=== PATIENT | female | born 1935 | race Caucasian/White ===

== ENCOUNTER 2016-10-05 11:58 | Inpatient (IN) | payer OTHER ==
[2016-10-05] MEDS ORDERED: NITROGLYCERIN 0.4 MG TAB SL PRN (18:02)
[2016-10-05] MEDS ORDERED: ONDANSETRON HCL 4 MG TAB PO PRN (18:02)
[2016-10-05] MEDS ORDERED: POLYETHYLENE GLYCOL 17 GM/1 TBS PDS PO PRN (18:02)
[2016-10-05] MEDS ORDERED: OXYCODONE HYDROCHLORIDE 5 MG TAB PO PRN (18:02)
[2016-10-05] MEDS ORDERED: ALUMINUM/MAGNESIUM 30 ML SUS PO PRN (18:02)
[2016-10-05] MEDS ORDERED: Non-Formulary Medication MISC (Sennosides/Docusate Sodium [Senna-S 50 Mg-8.6 Mg] 1 TAB) PO PRN (18:02)
[2016-10-05] MEDS ORDERED: PIPERACILLIN/TAZOBACT 3.375 GM PDS IV SCH (18:15)
[2016-10-05] MEDS: SODIUM CHLORIDE 0.9% FLUSH 10 ML SOL IV PRN ×2 (18:30→20:13)
[2016-10-05] MEDS: SODIUM CHLORIDE 0.9% FLUSH 10 ML SOL IV SCH (19:14)
[2016-10-05] MEDS: AMLODIPINE 5 MG TAB PO SCH ×2 (19:30→19:31)
[2016-10-05] MEDS: Non-Formulary Medication MISC (Budesonide/Formoterol 160/4.5 2 PUFF) IH SCH (19:41)
[2016-10-05] MEDS ORDERED: DIPHENOXYLATE PO PRN (20:37)
[2016-10-05] MEDS ORDERED: ATROPINE PO PRN (20:37)
[2016-10-05] MEDS ORDERED: DIPHENOXYLATE PO SCH (21:00)
[2016-10-05] MEDS ORDERED: ATROPINE PO SCH (21:00)
[2016-10-05] MEDS: ACETAMINOPHEN 500 MG 500 MG TAB PO PRN (21:54)
[2016-10-05] MEDS: GABAPENTIN 300 MG CAP PO SCH (22:39)
[2016-10-05] MEDS: ACLIDINIUM BROMIDE 400 MCG INH SCH (22:40)
[2016-10-05] MEDS: LACTOBACILLUS ACIDOPHILUS/PE 1 TAB TAB PO SCH (22:41)
[2016-10-06] MEDS ORDERED: SODIUM CHLORIDE 0.9% 100 ML 100 ML IV ONE ×4 (01:07→20:00)
[2016-10-06] MEDS ORDERED: PIPERACILLIN/TAZOBACT 3.375 GM PDS IV ONE ×4 (01:07→19:59)
[2016-10-06] MEDS: SODIUM CHLORIDE 0.9% FLUSH 10 ML SOL IV SCH ×4 (01:19→20:10)
[2016-10-06] MEDS: PIPERACILLIN/TAZOBACT 3.375 GM 3.375 GM in SODIUM CHLORIDE 0.9% 100 ML 100 ML IV SCH ×4 (01:20→20:08)
[2016-10-06] MEDS: Non-Formulary Medication MISC (Budesonide/Formoterol 160/4.5 2 PUFF) IH SCH (06:14)
[2016-10-06] MEDS: ACLIDINIUM BROMIDE 400 MCG INH SCH ×2 (08:36→20:13)
[2016-10-06] MEDS: AMLODIPINE 5 MG TAB PO SCH (12:07)
[2016-10-06] MEDS: LACTOBACILLUS ACIDOPHILUS/PE 1 TAB TAB PO SCH ×2 (12:08→20:11)
[2016-10-06] MEDS: FLUCONAZOLE 100 MG TAB PO SCH (12:11)
[2016-10-06] MEDS: GABAPENTIN 100 MG CAP PO SCH (12:19)
[2016-10-06] MEDS ORDERED: SENNOSIDES A AND B 8.6 MG TAB PO PRN (15:42)
[2016-10-06] MEDS ORDERED: DOCUSATE SODIUM 100 MG SGL PO PRN (15:43)
[2016-10-06] MEDS ORDERED: BUDESONIDE/FORMOTEROL 160/4.5 AER INH SCH (15:45)
[2016-10-06] MEDS: ALBUTEROL HFA 60 PUFF/INHALER INH PRN (15:57)
[2016-10-06] MEDS: ACETAMINOPHEN 500 MG 500 MG TAB PO PRN (16:45)
[2016-10-06] MEDS: BUDESONIDE/FORMOTEROL 160/4.5 AER INH SCH (20:09)
[2016-10-06] MEDS: GABAPENTIN 300 MG CAP PO SCH (20:11)
[2016-10-07] MEDS: PIPERACILLIN/TAZOBACT 3.375 GM 3.375 GM in SODIUM CHLORIDE 0.9% 100 ML 100 ML IV SCH ×4 (01:19→18:59)
[2016-10-07] MEDS: SODIUM CHLORIDE 0.9% FLUSH 10 ML SOL IV SCH ×4 (01:19→18:59)
[2016-10-07] MEDS: BUDESONIDE/FORMOTEROL 160/4.5 AER INH SCH ×2 (06:28→18:12)
[2016-10-07 07:30] LABS: BASOPHILS % (AUTO) 1 % (0-3); EOSINOPHILS % (AUTO) 2 % (0-9); HEMATOCRIT 28 % (35-47); MEAN CORPUSCULAR HGB CONC 33.6 gm/dl (32.0-36.0); MONOCYTES % (AUTO) 5.7 % (0-12); NEUTROPHILS % (AUTO) 78.4 % (37-80)
[2016-10-07 07:32] LABS: ALBUMIN 1.8 gm/dl (3.4-5.0); CALCIUM 8.3 mg/dl (8.5-10.1); POTASSIUM 3.9 mMol/L (3.5-5.1)
[2016-10-07] MEDS: AMLODIPINE 5 MG TAB PO SCH (08:24)
[2016-10-07] MEDS: FLUCONAZOLE 100 MG TAB PO SCH (08:25)
[2016-10-07] MEDS: LACTOBACILLUS ACIDOPHILUS/PE 1 TAB TAB PO SCH ×2 (08:27→20:56)
[2016-10-07] MEDS: GABAPENTIN 100 MG CAP PO SCH (08:33)
[2016-10-07] MEDS: ACLIDINIUM BROMIDE 400 MCG INH SCH ×2 (09:15→20:56)
[2016-10-07] MEDS: PSYLLIUM 3.6 GM/1 TBS PDR PO SCH (09:28)
[2016-10-07] MEDS: ACETAMINOPHEN 500 MG 500 MG TAB PO PRN (19:30)
[2016-10-07] MEDS: GABAPENTIN 300 MG CAP PO SCH (20:56)
[2016-10-08] MEDS: SODIUM CHLORIDE 0.9% FLUSH 10 ML SOL IV SCH ×4 (01:37→18:21)
[2016-10-08] MEDS: PIPERACILLIN/TAZOBACT 3.375 GM 3.375 GM in SODIUM CHLORIDE 0.9% 100 ML 100 ML IV SCH ×4 (01:38→18:21)
[2016-10-08] MEDS: BUDESONIDE/FORMOTEROL 160/4.5 AER INH SCH ×2 (06:38→18:32)
[2016-10-08] MEDS: LACTOBACILLUS ACIDOPHILUS/PE 1 TAB TAB PO SCH ×2 (08:09→21:35)
[2016-10-08] MEDS: FLUCONAZOLE 100 MG TAB PO SCH (08:11)
[2016-10-08] MEDS: GABAPENTIN 100 MG CAP PO SCH (08:12)
[2016-10-08] MEDS: ACLIDINIUM BROMIDE 400 MCG INH SCH ×2 (08:13→21:44)
[2016-10-08] MEDS: AMLODIPINE 5 MG TAB PO SCH (08:14)
[2016-10-08] MEDS: PSYLLIUM 3.6 GM/1 TBS PDR PO SCH (11:58)
[2016-10-08] MEDS: SODIUM CHLORIDE 0.9% FLUSH 10 ML SOL IV PRN (14:05)
[2016-10-08] MEDS: GABAPENTIN 300 MG CAP PO SCH (21:39)
[2016-10-09] MEDS: PIPERACILLIN/TAZOBACT 3.375 GM 3.375 GM in SODIUM CHLORIDE 0.9% 100 ML 100 ML IV SCH ×4 (00:46→18:28)
[2016-10-09] MEDS: SODIUM CHLORIDE 0.9% FLUSH 10 ML SOL IV SCH ×4 (00:46→18:30)
[2016-10-09] MEDS: BUDESONIDE/FORMOTEROL 160/4.5 AER INH SCH ×2 (06:03→18:28)
[2016-10-09] MEDS: SODIUM CHLORIDE 0.9% FLUSH 10 ML SOL IV PRN (06:45)
[2016-10-09] MEDS: AMLODIPINE 5 MG TAB PO SCH (09:01)
[2016-10-09] MEDS: LACTOBACILLUS ACIDOPHILUS/PE 1 TAB TAB PO SCH ×2 (09:02→20:46)
[2016-10-09] MEDS: FLUCONAZOLE 100 MG TAB PO SCH (09:02)
[2016-10-09] MEDS: ACLIDINIUM BROMIDE 400 MCG INH SCH ×2 (09:02→20:23)
[2016-10-09] MEDS: GABAPENTIN 100 MG CAP PO SCH (09:03)
[2016-10-09] MEDS: PSYLLIUM 3.6 GM/1 TBS PDR PO SCH (09:04)
[2016-10-09] MEDS: GABAPENTIN 300 MG CAP PO SCH (20:24)
[2016-10-10] MEDS: PIPERACILLIN/TAZOBACT 3.375 GM 3.375 GM in SODIUM CHLORIDE 0.9% 100 ML 100 ML IV SCH ×4 (01:45→19:05)
[2016-10-10] MEDS: SODIUM CHLORIDE 0.9% FLUSH 10 ML SOL IV SCH ×6 (01:45→19:46)
[2016-10-10] MEDS: BUDESONIDE/FORMOTEROL 160/4.5 AER INH SCH ×2 (06:10→18:37)
[2016-10-10] MEDS: LACTOBACILLUS ACIDOPHILUS/PE 1 TAB TAB PO SCH ×2 (09:59→20:59)
[2016-10-10] MEDS: FLUCONAZOLE 100 MG TAB PO SCH (09:59)
[2016-10-10] MEDS: ACLIDINIUM BROMIDE 400 MCG INH SCH ×2 (09:59→21:02)
[2016-10-10] MEDS: PSYLLIUM 3.6 GM/1 TBS PDR PO SCH (09:59)
[2016-10-10] MEDS: AMLODIPINE 5 MG TAB PO SCH (10:00)
[2016-10-10] MEDS: GABAPENTIN 100 MG CAP PO SCH (10:00)
[2016-10-10] MEDS: SODIUM CHLORIDE 0.9% FLUSH 10 ML SOL IV PRN (13:38)
[2016-10-10] MEDS: ACETAMINOPHEN 500 MG 500 MG TAB PO PRN (14:32)
[2016-10-10] MEDS: GABAPENTIN 300 MG CAP PO SCH (21:00)
[2016-10-11] MEDS: SODIUM CHLORIDE 0.9% FLUSH 10 ML SOL IV SCH ×5 (01:04→19:44)
[2016-10-11] MEDS: PIPERACILLIN/TAZOBACT 3.375 GM 3.375 GM in SODIUM CHLORIDE 0.9% 100 ML 100 ML IV SCH ×4 (01:04→19:44)
[2016-10-11] MEDS: BUDESONIDE/FORMOTEROL 160/4.5 AER INH SCH ×2 (06:00→19:25)
[2016-10-11] MEDS: LACTOBACILLUS ACIDOPHILUS/PE 1 TAB TAB PO SCH ×2 (09:11→20:13)
[2016-10-11] MEDS: ACLIDINIUM BROMIDE 400 MCG INH SCH ×2 (09:12→20:17)
[2016-10-11] MEDS: GABAPENTIN 100 MG CAP PO SCH (09:12)
[2016-10-11] MEDS: FLUCONAZOLE 100 MG TAB PO SCH (09:12)
[2016-10-11] MEDS: AMLODIPINE 5 MG TAB PO SCH (09:13)
[2016-10-11] MEDS: PSYLLIUM 3.6 GM/1 TBS PDR PO SCH (09:15)
[2016-10-11] MEDS: GABAPENTIN 300 MG CAP PO SCH (20:14)
[2016-10-12] MEDS: PIPERACILLIN/TAZOBACT 3.375 GM 3.375 GM in SODIUM CHLORIDE 0.9% 100 ML 100 ML IV SCH ×4 (00:43→18:35)
[2016-10-12] MEDS: SODIUM CHLORIDE 0.9% FLUSH 10 ML SOL IV SCH ×4 (00:44→18:35)
[2016-10-12] MEDS: BUDESONIDE/FORMOTEROL 160/4.5 AER INH SCH ×2 (06:36→18:35)
[2016-10-12] MEDS: AMLODIPINE 5 MG TAB PO SCH (09:07)
[2016-10-12] MEDS: FLUCONAZOLE 100 MG TAB PO SCH (09:08)
[2016-10-12] MEDS: LACTOBACILLUS ACIDOPHILUS/PE 1 TAB TAB PO SCH ×2 (09:08→21:04)
[2016-10-12] MEDS: PSYLLIUM 3.6 GM/1 TBS PDR PO SCH (09:08)
[2016-10-12] MEDS: GABAPENTIN 100 MG CAP PO SCH (09:09)
[2016-10-12] MEDS: ACLIDINIUM BROMIDE 400 MCG INH SCH ×2 (09:12→21:04)
[2016-10-12 09:18] LABS: BASOPHILS % (AUTO) 2 % (0-3); EOSINOPHILS % (AUTO) 3 % (0-9); HEMATOCRIT 27 % (35-47); MEAN CORPUSCULAR HGB CONC 33.6 gm/dl (32.0-36.0); MONOCYTES % (AUTO) 8.3 % (0-12); NEUTROPHILS % (AUTO) 71.7 % (37-80)
[2016-10-12] MEDS ORDERED: PIPERACILLIN/TAZOBACT 3.375 GM PDS IV ONE (12:54)
[2016-10-12] MEDS ORDERED: SODIUM CHLORIDE 0.9% 100 ML 100 ML IV ONE (12:54)
[2016-10-12] MEDS: SODIUM CHLORIDE 0.9% FLUSH 10 ML SOL IV PRN (13:55)
[2016-10-12] MEDS: GABAPENTIN 300 MG CAP PO SCH (21:04)
[2016-10-13] MEDS: PIPERACILLIN/TAZOBACT 3.375 GM 3.375 GM in SODIUM CHLORIDE 0.9% 100 ML 100 ML IV SCH ×4 (00:42→19:16)
[2016-10-13] MEDS: SODIUM CHLORIDE 0.9% FLUSH 10 ML SOL IV SCH ×4 (00:42→19:16)
[2016-10-13] MEDS: BUDESONIDE/FORMOTEROL 160/4.5 AER INH SCH ×2 (06:35→17:59)
[2016-10-13] MEDS: SODIUM CHLORIDE 0.9% FLUSH 10 ML SOL IV PRN ×2 (07:13→13:10)
[2016-10-13] MEDS: ACLIDINIUM BROMIDE 400 MCG INH SCH ×2 (08:46→20:01)
[2016-10-13] MEDS: FLUCONAZOLE 100 MG TAB PO SCH (08:46)
[2016-10-13] MEDS: LACTOBACILLUS ACIDOPHILUS/PE 1 TAB TAB PO SCH ×2 (08:46→20:01)
[2016-10-13] MEDS: PSYLLIUM 3.6 GM/1 TBS PDR PO SCH (08:47)
[2016-10-13] MEDS: GABAPENTIN 100 MG CAP PO SCH (08:47)
[2016-10-13] MEDS: AMLODIPINE 5 MG TAB PO SCH (08:48)
[2016-10-13] MEDS: ALBUTEROL HFA 60 PUFF/INHALER INH PRN ×2 (09:40→15:39)
[2016-10-13] MEDS: GABAPENTIN 300 MG CAP PO SCH (20:01)
[2016-10-14] MEDS: PIPERACILLIN/TAZOBACT 3.375 GM 3.375 GM in SODIUM CHLORIDE 0.9% 100 ML 100 ML IV SCH ×4 (00:32→19:40)
[2016-10-14] MEDS: SODIUM CHLORIDE 0.9% FLUSH 10 ML SOL IV SCH ×4 (00:32→19:40)
[2016-10-14] MEDS: SODIUM CHLORIDE 0.9% FLUSH 10 ML SOL IV PRN ×2 (01:09→07:35)
[2016-10-14] MEDS: BUDESONIDE/FORMOTEROL 160/4.5 AER INH SCH ×2 (06:57→18:52)
[2016-10-14 07:23] LABS: BASOPHILS % (AUTO) 2 % (0-3); EOSINOPHILS % (AUTO) 4 % (0-9); HEMATOCRIT 27 % (35-47); MEAN CORPUSCULAR HGB CONC 34.4 gm/dl (32.0-36.0); MONOCYTES % (AUTO) 9.4 % (0-12); NEUTROPHILS % (AUTO) 71.1 % (37-80)
[2016-10-14 07:24] LABS: ALBUMIN 2.1 gm/dl (3.4-5.0); CALCIUM 8.6 mg/dl (8.5-10.1); POTASSIUM 3.7 mMol/L (3.5-5.1)
[2016-10-14] MEDS: FLUCONAZOLE 100 MG TAB PO SCH (08:50)
[2016-10-14] MEDS: GABAPENTIN 100 MG CAP PO SCH (08:51)
[2016-10-14] MEDS: AMLODIPINE 5 MG TAB PO SCH (08:51)
[2016-10-14] MEDS: PSYLLIUM 3.6 GM/1 TBS PDR PO SCH (08:51)
[2016-10-14] MEDS: LACTOBACILLUS ACIDOPHILUS/PE 1 TAB TAB PO SCH ×2 (08:52→20:09)
[2016-10-14] MEDS: ACLIDINIUM BROMIDE 400 MCG INH SCH ×2 (08:53→20:09)
[2016-10-14] MEDS: GABAPENTIN 300 MG CAP PO SCH (20:09)
[2016-10-15] MEDS: PIPERACILLIN/TAZOBACT 3.375 GM 3.375 GM in SODIUM CHLORIDE 0.9% 100 ML 100 ML IV SCH ×4 (01:15→18:10)
[2016-10-15] MEDS: SODIUM CHLORIDE 0.9% FLUSH 10 ML SOL IV SCH ×5 (01:16→18:48)
[2016-10-15] MEDS: ACETAMINOPHEN 500 MG 500 MG TAB PO PRN (01:28)
[2016-10-15] MEDS: BUDESONIDE/FORMOTEROL 160/4.5 AER INH SCH ×2 (06:38→18:10)
[2016-10-15] MEDS: FLUCONAZOLE 100 MG TAB PO SCH (09:40)
[2016-10-15] MEDS: LACTOBACILLUS ACIDOPHILUS/PE 1 TAB TAB PO SCH ×3 (09:40→22:47)
[2016-10-15] MEDS: ACLIDINIUM BROMIDE 400 MCG INH SCH ×2 (09:40→20:14)
[2016-10-15] MEDS: AMLODIPINE 5 MG TAB PO SCH (09:41)
[2016-10-15] MEDS: PSYLLIUM 3.6 GM/1 TBS PDR PO SCH (09:41)
[2016-10-15] MEDS: GABAPENTIN 100 MG CAP PO SCH (09:41)
[2016-10-15] MEDS: ALBUTEROL HFA 60 PUFF/INHALER INH PRN ×2 (11:13→20:15)
[2016-10-15] MEDS: GABAPENTIN 300 MG CAP PO SCH (20:14)
[2016-10-16] MEDS: SODIUM CHLORIDE 0.9% FLUSH 10 ML SOL IV SCH ×4 (00:37→19:44)
[2016-10-16] MEDS: PIPERACILLIN/TAZOBACT 3.375 GM 3.375 GM in SODIUM CHLORIDE 0.9% 100 ML 100 ML IV SCH ×4 (00:38→19:45)
[2016-10-16] MEDS: BUDESONIDE/FORMOTEROL 160/4.5 AER INH SCH ×2 (06:25→17:13)
[2016-10-16] MEDS: SODIUM CHLORIDE 0.9% FLUSH 10 ML SOL IV PRN (06:29)
[2016-10-16] MEDS: FLUCONAZOLE 100 MG TAB PO SCH (08:41)
[2016-10-16] MEDS: LACTOBACILLUS ACIDOPHILUS/PE 1 TAB TAB PO SCH ×2 (08:42→20:41)
[2016-10-16] MEDS: ACLIDINIUM BROMIDE 400 MCG INH SCH ×2 (08:42→20:43)
[2016-10-16] MEDS: AMLODIPINE 5 MG TAB PO SCH (08:43)
[2016-10-16] MEDS: PSYLLIUM 3.6 GM/1 TBS PDR PO SCH ×2 (08:43→08:47)
[2016-10-16] MEDS: GABAPENTIN 100 MG CAP PO SCH (08:44)
[2016-10-16] MEDS: GABAPENTIN 300 MG CAP PO SCH (20:42)
[2016-10-16] MEDS: ALBUTEROL HFA 60 PUFF/INHALER INH PRN (20:47)
[2016-10-17] MEDS: PIPERACILLIN/TAZOBACT 3.375 GM 3.375 GM in SODIUM CHLORIDE 0.9% 100 ML 100 ML IV SCH ×4 (01:14→19:53)
[2016-10-17] MEDS: SODIUM CHLORIDE 0.9% FLUSH 10 ML SOL IV SCH ×4 (01:14→21:49)
[2016-10-17] MEDS: BUDESONIDE/FORMOTEROL 160/4.5 AER INH SCH ×2 (05:52→17:31)
[2016-10-17] MEDS: SODIUM CHLORIDE 0.9% FLUSH 10 ML SOL IV PRN (07:54)
[2016-10-17] MEDS: LACTOBACILLUS ACIDOPHILUS/PE 1 TAB TAB PO SCH ×2 (08:49→21:50)
[2016-10-17] MEDS: FLUCONAZOLE 100 MG TAB PO SCH (08:50)
[2016-10-17] MEDS: ACLIDINIUM BROMIDE 400 MCG INH SCH ×2 (08:50→21:50)
[2016-10-17] MEDS: PSYLLIUM 3.6 GM/1 TBS PDR PO SCH (08:50)
[2016-10-17] MEDS: GABAPENTIN 100 MG CAP PO SCH (08:51)
[2016-10-17] MEDS: AMLODIPINE 5 MG TAB PO SCH (08:51)
[2016-10-17] MEDS: ALBUTEROL HFA 60 PUFF/INHALER INH PRN (21:50)
[2016-10-17] MEDS: GABAPENTIN 300 MG CAP PO SCH (21:51)
[2016-10-18] MEDS: SODIUM CHLORIDE 0.9% FLUSH 10 ML SOL IV SCH ×5 (01:04→21:29)
[2016-10-18] MEDS: PIPERACILLIN/TAZOBACT 3.375 GM 3.375 GM in SODIUM CHLORIDE 0.9% 100 ML 100 ML IV SCH ×4 (01:04→18:40)
[2016-10-18] MEDS: BUDESONIDE/FORMOTEROL 160/4.5 AER INH SCH ×2 (07:16→18:41)
[2016-10-18] MEDS: LACTOBACILLUS ACIDOPHILUS/PE 1 TAB TAB PO SCH ×2 (08:22→21:30)
[2016-10-18] MEDS: AMLODIPINE 5 MG TAB PO SCH (08:22)
[2016-10-18] MEDS: FLUCONAZOLE 100 MG TAB PO SCH (08:23)
[2016-10-18] MEDS: GABAPENTIN 100 MG CAP PO SCH (08:23)
[2016-10-18] MEDS: PSYLLIUM 3.6 GM/1 TBS PDR PO SCH (08:24)
[2016-10-18] MEDS: ACLIDINIUM BROMIDE 400 MCG INH SCH ×2 (08:25→21:30)
[2016-10-18] MEDS: FUROSEMIDE 20 MG TAB PO SCH (10:05)
[2016-10-18] MEDS: SODIUM CHLORIDE 0.9% FLUSH 10 ML SOL IV PRN (13:19)
[2016-10-18] MEDS: GABAPENTIN 300 MG CAP PO SCH (21:30)
[2016-10-19] MEDS: SODIUM CHLORIDE 0.9% FLUSH 10 ML SOL IV SCH ×5 (00:55→19:03)
[2016-10-19] MEDS: PIPERACILLIN/TAZOBACT 3.375 GM 3.375 GM in SODIUM CHLORIDE 0.9% 100 ML 100 ML IV SCH ×4 (00:55→18:16)
[2016-10-19] MEDS: BUDESONIDE/FORMOTEROL 160/4.5 AER INH SCH ×2 (05:56→17:51)
[2016-10-19] MEDS: FLUCONAZOLE 100 MG TAB PO SCH (08:32)
[2016-10-19] MEDS: LACTOBACILLUS ACIDOPHILUS/PE 1 TAB TAB PO SCH ×2 (08:33→20:27)
[2016-10-19] MEDS: PSYLLIUM 3.6 GM/1 TBS PDR PO SCH (08:34)
[2016-10-19] MEDS: ACLIDINIUM BROMIDE 400 MCG INH SCH ×2 (08:34→20:27)
[2016-10-19] MEDS: FUROSEMIDE 20 MG TAB PO SCH (08:34)
[2016-10-19] MEDS: GABAPENTIN 100 MG CAP PO SCH (08:35)
[2016-10-19] MEDS: AMLODIPINE 5 MG TAB PO SCH (08:35)
[2016-10-19] MEDS: GABAPENTIN 300 MG CAP PO SCH (20:28)
[2016-10-20] MEDS: SODIUM CHLORIDE 0.9% FLUSH 10 ML SOL IV SCH ×4 (00:42→18:55)
[2016-10-20] MEDS: PIPERACILLIN/TAZOBACT 3.375 GM 3.375 GM in SODIUM CHLORIDE 0.9% 100 ML 100 ML IV SCH ×4 (00:42→18:20)
[2016-10-20] MEDS: BUDESONIDE/FORMOTEROL 160/4.5 AER INH SCH ×2 (06:20→17:35)
[2016-10-20] MEDS: FUROSEMIDE 20 MG TAB PO SCH (08:31)
[2016-10-20] MEDS: AMLODIPINE 5 MG TAB PO SCH (08:32)
[2016-10-20] MEDS: FLUCONAZOLE 100 MG TAB PO SCH (08:32)
[2016-10-20] MEDS: PSYLLIUM 3.6 GM/1 TBS PDR PO SCH (08:32)
[2016-10-20] MEDS: GABAPENTIN 100 MG CAP PO SCH (08:32)
[2016-10-20] MEDS: LACTOBACILLUS ACIDOPHILUS/PE 1 TAB TAB PO SCH ×2 (08:33→20:48)
[2016-10-20] MEDS: ACLIDINIUM BROMIDE 400 MCG INH SCH ×2 (08:33→20:48)
[2016-10-20] MEDS: SODIUM CHLORIDE 0.9% FLUSH 10 ML SOL IV PRN (13:41)
[2016-10-20] MEDS: GABAPENTIN 300 MG CAP PO SCH (20:49)
[2016-10-21] MEDS: SODIUM CHLORIDE 0.9% FLUSH 10 ML SOL IV SCH ×5 (01:02→18:53)
[2016-10-21] MEDS: PIPERACILLIN/TAZOBACT 3.375 GM 3.375 GM in SODIUM CHLORIDE 0.9% 100 ML 100 ML IV SCH ×4 (01:03→18:52)
[2016-10-21] MEDS: BUDESONIDE/FORMOTEROL 160/4.5 AER INH SCH ×2 (06:20→18:21)
[2016-10-21 07:20] LABS: BASOPHILS % (AUTO) 2 % (0-3); EOSINOPHILS % (AUTO) 6 % (0-9); HEMATOCRIT 24 % (35-47); MEAN CORPUSCULAR HGB CONC 34.9 gm/dl (32.0-36.0); MONOCYTES % (AUTO) 8.2 % (0-12); NEUTROPHILS % (AUTO) 63.8 % (37-80)
[2016-10-21 07:23] LABS: ALBUMIN 2.2 gm/dl (3.4-5.0); CALCIUM 8.2 mg/dl (8.5-10.1); POTASSIUM 3.3 mMol/L (3.5-5.1)
[2016-10-21] MEDS: FLUCONAZOLE 100 MG TAB PO SCH (09:44)
[2016-10-21] MEDS: ACLIDINIUM BROMIDE 400 MCG INH SCH ×2 (09:44→21:46)
[2016-10-21] MEDS: AMLODIPINE 5 MG TAB PO SCH (09:44)
[2016-10-21] MEDS: LACTOBACILLUS ACIDOPHILUS/PE 1 TAB TAB PO SCH ×2 (09:44→21:45)
[2016-10-21] MEDS: FUROSEMIDE 20 MG TAB PO SCH (09:45)
[2016-10-21] MEDS: PSYLLIUM 3.6 GM/1 TBS PDR PO SCH (09:45)
[2016-10-21] MEDS: GABAPENTIN 100 MG CAP PO SCH (09:45)
[2016-10-21] MEDS: SODIUM CHLORIDE 0.9% FLUSH 10 ML SOL IV PRN (13:29)
[2016-10-21] MEDS ORDERED: POTASSIUM CHLORIDE 10 MEQ TER PO SCH (20:30)
[2016-10-21] MEDS ORDERED: POTASSIUM CHLORIDE 10 MEQ TER ONE (21:41)
[2016-10-21] MEDS: GABAPENTIN 300 MG CAP PO SCH (21:47)
[2016-10-22] MEDS ORDERED: PIPERACILLIN/TAZOBACT 3.375 GM PDS IV ONE ×3 (00:57→14:53)
[2016-10-22] MEDS ORDERED: SODIUM CHLORIDE 0.9% 100 ML 100 ML IV ONE ×2 (00:58→06:10)
[2016-10-22] MEDS: PIPERACILLIN/TAZOBACT 3.375 GM 3.375 GM in SODIUM CHLORIDE 0.9% 100 ML 100 ML IV SCH ×4 (01:04→20:59)
[2016-10-22] MEDS: SODIUM CHLORIDE 0.9% FLUSH 10 ML SOL IV SCH ×4 (01:04→20:59)
[2016-10-22] MEDS: BUDESONIDE/FORMOTEROL 160/4.5 AER INH SCH ×2 (06:58→19:00)
[2016-10-22 07:17] LABS: CALCIUM 8.3 mg/dl (8.5-10.1); POTASSIUM 3.4 mMol/L (3.5-5.1)
[2016-10-22] MEDS: SODIUM CHLORIDE 0.9% FLUSH 10 ML SOL IV PRN ×2 (07:36→21:43)
[2016-10-22] MEDS: FLUCONAZOLE 100 MG TAB PO SCH (09:41)
[2016-10-22] MEDS: ACLIDINIUM BROMIDE 400 MCG INH SCH ×2 (09:42→20:43)
[2016-10-22] MEDS: LACTOBACILLUS ACIDOPHILUS/PE 1 TAB TAB PO SCH ×2 (09:42→20:42)
[2016-10-22] MEDS: AMLODIPINE 5 MG TAB PO SCH (09:43)
[2016-10-22] MEDS: GABAPENTIN 100 MG CAP PO SCH (09:43)
[2016-10-22] MEDS: FUROSEMIDE 20 MG TAB PO SCH (09:43)
[2016-10-22] MEDS: PSYLLIUM 3.6 GM/1 TBS PDR PO SCH (09:44)
[2016-10-22] MEDS ORDERED: POTASSIUM CHLORIDE 10 MEQ CAPSULE PO ONE (17:36)
[2016-10-22] MEDS ORDERED: POTASSIUM CHLORIDE 10 MEQ TER ONE (18:50)
[2016-10-22] MEDS: GABAPENTIN 300 MG CAP PO SCH (20:43)
[2016-10-23] MEDS: PIPERACILLIN/TAZOBACT 3.375 GM 3.375 GM in SODIUM CHLORIDE 0.9% 100 ML 100 ML IV SCH ×4 (02:43→20:26)
[2016-10-23] MEDS: SODIUM CHLORIDE 0.9% FLUSH 10 ML SOL IV SCH ×4 (02:44→21:04)
[2016-10-23] MEDS: SODIUM CHLORIDE 0.9% FLUSH 10 ML SOL IV PRN (03:15)
[2016-10-23] MEDS: BUDESONIDE/FORMOTEROL 160/4.5 AER INH SCH ×2 (05:34→18:57)
[2016-10-23] MEDS: LACTOBACILLUS ACIDOPHILUS/PE 1 TAB TAB PO SCH ×2 (09:56→20:24)
[2016-10-23] MEDS: FLUCONAZOLE 100 MG TAB PO SCH (09:56)
[2016-10-23] MEDS: ACLIDINIUM BROMIDE 400 MCG INH SCH ×2 (09:57→20:24)
[2016-10-23] MEDS: FUROSEMIDE 20 MG TAB PO SCH (09:57)
[2016-10-23] MEDS: POTASSIUM CHLORIDE 10 MEQ TER PO SCH (09:57)
[2016-10-23] MEDS: PSYLLIUM 3.6 GM/1 TBS PDR PO SCH ×2 (09:57→10:04)
[2016-10-23] MEDS: AMLODIPINE 5 MG TAB PO SCH (09:58)
[2016-10-23] MEDS: GABAPENTIN 100 MG CAP PO SCH (09:58)
[2016-10-23] MEDS: GABAPENTIN 300 MG CAP PO SCH (20:26)
[2016-10-24] MEDS: PIPERACILLIN/TAZOBACT 3.375 GM 3.375 GM in SODIUM CHLORIDE 0.9% 100 ML 100 ML IV SCH ×4 (02:30→21:37)
[2016-10-24] MEDS: SODIUM CHLORIDE 0.9% FLUSH 10 ML SOL IV SCH ×4 (02:30→21:37)
[2016-10-24] MEDS: SODIUM CHLORIDE 0.9% FLUSH 10 ML SOL IV PRN (03:07)
[2016-10-24] MEDS: BUDESONIDE/FORMOTEROL 160/4.5 AER INH SCH ×2 (06:12→18:35)
[2016-10-24] MEDS: FUROSEMIDE 20 MG TAB PO SCH (10:17)
[2016-10-24] MEDS: GABAPENTIN 100 MG CAP PO SCH (10:17)
[2016-10-24] MEDS: LACTOBACILLUS ACIDOPHILUS/PE 1 TAB TAB PO SCH ×2 (10:18→20:57)
[2016-10-24] MEDS: AMLODIPINE 5 MG TAB PO SCH (10:18)
[2016-10-24] MEDS: POTASSIUM CHLORIDE 10 MEQ TER PO SCH (10:19)
[2016-10-24] MEDS: PSYLLIUM 3.6 GM/1 TBS PDR PO SCH (10:19)
[2016-10-24] MEDS: FLUCONAZOLE 100 MG TAB PO SCH (10:20)
[2016-10-24] MEDS: ACLIDINIUM BROMIDE 400 MCG INH SCH ×2 (10:20→21:07)
[2016-10-24] MEDS: GABAPENTIN 300 MG CAP PO SCH (20:59)
[2016-10-25] MEDS: SODIUM CHLORIDE 0.9% FLUSH 10 ML SOL IV SCH ×4 (03:26→20:28)
[2016-10-25] MEDS: PIPERACILLIN/TAZOBACT 3.375 GM 3.375 GM in SODIUM CHLORIDE 0.9% 100 ML 100 ML IV SCH ×4 (03:26→20:28)
[2016-10-25] MEDS: BUDESONIDE/FORMOTEROL 160/4.5 AER INH SCH ×2 (05:52→18:24)
[2016-10-25 07:17] LABS: CALCIUM 8.5 mg/dl (8.5-10.1); POTASSIUM 3.5 mMol/L (3.5-5.1)
[2016-10-25] MEDS: ACLIDINIUM BROMIDE 400 MCG INH SCH ×2 (09:30→20:24)
[2016-10-25] MEDS: FLUCONAZOLE 100 MG TAB PO SCH (09:30)
[2016-10-25] MEDS: GABAPENTIN 100 MG CAP PO SCH (09:31)
[2016-10-25] MEDS: FUROSEMIDE 20 MG TAB PO SCH (09:32)
[2016-10-25] MEDS: LACTOBACILLUS ACIDOPHILUS/PE 1 TAB TAB PO SCH ×2 (09:32→20:26)
[2016-10-25] MEDS: PSYLLIUM 3.6 GM/1 TBS PDR PO SCH (09:32)
[2016-10-25] MEDS: AMLODIPINE 5 MG TAB PO SCH (09:53)
[2016-10-25] MEDS: LISINOPRIL 5 MG TAB PO SCH (09:53)
[2016-10-25] MEDS: DOCUSATE SODIUM 100 MG SGL PO SCH ×2 (09:53→20:25)
[2016-10-25] MEDS: POTASSIUM CHLORIDE 10 MEQ TER PO SCH (09:53)
[2016-10-25] MEDS: FERROUS SULFATE 325 MG TAB PO SCH ×2 (09:53→20:26)
[2016-10-25] MEDS: GABAPENTIN 300 MG CAP PO SCH (20:27)
[2016-10-25] MEDS: SODIUM CHLORIDE 0.9% FLUSH 10 ML SOL IV PRN (21:07)
[2016-10-26] MEDS: PIPERACILLIN/TAZOBACT 3.375 GM 3.375 GM in SODIUM CHLORIDE 0.9% 100 ML 100 ML IV SCH ×4 (03:03→20:59)
[2016-10-26] MEDS: SODIUM CHLORIDE 0.9% FLUSH 10 ML SOL IV SCH ×4 (03:04→20:59)
[2016-10-26] MEDS: BUDESONIDE/FORMOTEROL 160/4.5 AER INH SCH ×2 (06:23→20:04)
[2016-10-26] MEDS: ACLIDINIUM BROMIDE 400 MCG INH SCH ×2 (09:04→20:05)
[2016-10-26] MEDS: DOCUSATE SODIUM 100 MG SGL PO SCH ×2 (09:05→20:05)
[2016-10-26] MEDS: AMLODIPINE 5 MG TAB PO SCH (09:05)
[2016-10-26] MEDS: LISINOPRIL 5 MG TAB PO SCH (09:06)
[2016-10-26] MEDS: LACTOBACILLUS ACIDOPHILUS/PE 1 TAB TAB PO SCH ×2 (09:06→20:04)
[2016-10-26] MEDS: FERROUS SULFATE 325 MG TAB PO SCH ×2 (09:06→20:05)
[2016-10-26] MEDS: FLUCONAZOLE 100 MG TAB PO SCH (09:06)
[2016-10-26] MEDS: PSYLLIUM 3.6 GM/1 TBS PDR PO SCH (09:07)
[2016-10-26] MEDS: GABAPENTIN 100 MG CAP PO SCH (09:07)
[2016-10-26] MEDS: FUROSEMIDE 20 MG TAB PO SCH (09:08)
[2016-10-26] MEDS: POTASSIUM CHLORIDE 10 MEQ TER PO SCH (09:08)
[2016-10-26] MEDS: GABAPENTIN 300 MG CAP PO SCH (20:07)
[2016-10-26] MEDS: ALBUTEROL HFA 60 PUFF/INHALER INH PRN (20:14)
[2016-10-26] MEDS: SODIUM CHLORIDE 0.9% FLUSH 10 ML SOL IV PRN (21:42)
[2016-10-27] MEDS: PIPERACILLIN/TAZOBACT 3.375 GM 3.375 GM in SODIUM CHLORIDE 0.9% 100 ML 100 ML IV SCH ×4 (02:38→20:34)
[2016-10-27] MEDS: SODIUM CHLORIDE 0.9% FLUSH 10 ML SOL IV SCH ×4 (02:39→20:34)
[2016-10-27] MEDS: ACLIDINIUM BROMIDE 400 MCG INH SCH ×2 (08:38→20:03)
[2016-10-27] MEDS: AMLODIPINE 5 MG TAB PO SCH (08:40)
[2016-10-27] MEDS: GABAPENTIN 100 MG CAP PO SCH (08:40)
[2016-10-27] MEDS: POTASSIUM CHLORIDE 10 MEQ TER PO SCH (08:40)
[2016-10-27] MEDS: FERROUS SULFATE 325 MG TAB PO SCH ×2 (08:40→20:04)
[2016-10-27] MEDS: LACTOBACILLUS ACIDOPHILUS/PE 1 TAB TAB PO SCH ×2 (08:41→20:01)
[2016-10-27] MEDS: FLUCONAZOLE 100 MG TAB PO SCH (08:41)
[2016-10-27] MEDS: LISINOPRIL 5 MG TAB PO SCH (08:41)
[2016-10-27] MEDS: FUROSEMIDE 20 MG TAB PO SCH (08:41)
[2016-10-27] MEDS: DOCUSATE SODIUM 100 MG SGL PO SCH ×2 (08:42→20:04)
[2016-10-27] MEDS: PSYLLIUM 3.6 GM/1 TBS PDR PO SCH (08:42)
[2016-10-27] MEDS: BUDESONIDE/FORMOTEROL 160/4.5 AER INH SCH ×2 (08:44→20:02)
[2016-10-27] MEDS: ALBUTEROL HFA 60 PUFF/INHALER INH PRN ×2 (16:08→20:33)
[2016-10-27] MEDS: GABAPENTIN 300 MG CAP PO SCH (20:04)
[2016-10-28] MEDS: SODIUM CHLORIDE 0.9% FLUSH 10 ML SOL IV SCH ×4 (03:05→20:48)
[2016-10-28] MEDS: PIPERACILLIN/TAZOBACT 3.375 GM 3.375 GM in SODIUM CHLORIDE 0.9% 100 ML 100 ML IV SCH ×4 (03:05→20:52)
[2016-10-28] MEDS: ALBUTEROL NEB SOL 2.5MG/3ML 1 VIAL SOL NEB PRN ×2 (03:09→13:25)
[2016-10-28 07:28] LABS: BASOPHILS % (AUTO) 1 % (0-3); EOSINOPHILS % (AUTO) 16 % (0-9); HEMATOCRIT 25 % (35-47); MEAN CORPUSCULAR HGB CONC 32.4 gm/dl (32.0-36.0); MONOCYTES % (AUTO) 9.2 % (0-12)
[2016-10-28 07:43] LABS: ALBUMIN 2.4 gm/dl (3.4-5.0); CALCIUM 8.9 mg/dl (8.5-10.1); LDL CHOLESTEROL,CALCULATED 136.8 mg/dl (50-130); POTASSIUM 3.7 mMol/L (3.5-5.1)
[2016-10-28] MEDS: FERROUS SULFATE 325 MG TAB PO SCH ×2 (08:21→20:53)
[2016-10-28] MEDS: LACTOBACILLUS ACIDOPHILUS/PE 1 TAB TAB PO SCH ×2 (08:21→20:49)
[2016-10-28] MEDS: GABAPENTIN 100 MG CAP PO SCH (08:22)
[2016-10-28] MEDS: POTASSIUM CHLORIDE 10 MEQ TER PO SCH (08:22)
[2016-10-28] MEDS: FLUCONAZOLE 100 MG TAB PO SCH (08:23)
[2016-10-28] MEDS: ACLIDINIUM BROMIDE 400 MCG INH SCH ×2 (08:23→20:51)
[2016-10-28] MEDS: AMLODIPINE 5 MG TAB PO SCH (08:24)
[2016-10-28] MEDS: FUROSEMIDE 20 MG TAB PO SCH (08:26)
[2016-10-28] MEDS: LISINOPRIL 5 MG TAB PO SCH (08:26)
[2016-10-28] MEDS: DOCUSATE SODIUM 100 MG SGL PO SCH ×3 (08:28→21:00)
[2016-10-28] MEDS: PSYLLIUM 3.6 GM/1 TBS PDR PO SCH (08:28)
[2016-10-28] MEDS: BUDESONIDE/FORMOTEROL 160/4.5 AER INH SCH ×2 (11:23→20:54)
[2016-10-28 14:45] LABS: ABO O; ANTIBODY SCREEN Negative; RH TYPE Positive
[2016-10-28] MEDS: GABAPENTIN 300 MG CAP PO SCH (20:52)
[2016-10-29] MEDS: SODIUM CHLORIDE 0.9% FLUSH 10 ML SOL IV SCH ×4 (03:01→20:29)
[2016-10-29] MEDS: PIPERACILLIN/TAZOBACT 3.375 GM 3.375 GM in SODIUM CHLORIDE 0.9% 100 ML 100 ML IV SCH ×4 (03:01→20:27)
[2016-10-29] MEDS: DOCUSATE SODIUM 100 MG SGL PO SCH ×3 (09:22→20:32)
[2016-10-29] MEDS: PSYLLIUM 3.6 GM/1 TBS PDR PO SCH (09:22)
[2016-10-29] MEDS: ACLIDINIUM BROMIDE 400 MCG INH SCH ×2 (09:26→20:27)
[2016-10-29] MEDS: BUDESONIDE/FORMOTEROL 160/4.5 AER INH SCH ×2 (09:28→21:22)
[2016-10-29] MEDS: FUROSEMIDE 20 MG TAB PO SCH (09:29)
[2016-10-29] MEDS: AMLODIPINE 5 MG TAB PO SCH (09:29)
[2016-10-29] MEDS: POTASSIUM CHLORIDE 10 MEQ TER PO SCH (09:29)
[2016-10-29] MEDS: FLUCONAZOLE 100 MG TAB PO SCH (09:30)
[2016-10-29] MEDS: LACTOBACILLUS ACIDOPHILUS/PE 1 TAB TAB PO SCH ×2 (09:30→20:27)
[2016-10-29] MEDS: GABAPENTIN 100 MG CAP PO SCH (09:30)
[2016-10-29] MEDS: LISINOPRIL 5 MG TAB PO SCH (09:31)
[2016-10-29] MEDS: FERROUS SULFATE 325 MG TAB PO SCH ×2 (09:31→20:28)
[2016-10-29] MEDS: ALBUTEROL NEB SOL 2.5MG/3ML 1 VIAL SOL NEB PRN (10:44)
[2016-10-29] MEDS: ALBUTEROL HFA 60 PUFF/INHALER INH PRN (18:03)
[2016-10-29] MEDS: GABAPENTIN 300 MG CAP PO SCH (20:28)
[2016-10-30] MEDS: SODIUM CHLORIDE 0.9% FLUSH 10 ML SOL IV SCH ×4 (03:22→21:36)
[2016-10-30] MEDS: PIPERACILLIN/TAZOBACT 3.375 GM 3.375 GM in SODIUM CHLORIDE 0.9% 100 ML 100 ML IV SCH ×4 (03:23→21:36)
[2016-10-30] MEDS: ACLIDINIUM BROMIDE 400 MCG INH SCH ×2 (09:52→20:18)
[2016-10-30] MEDS: DOCUSATE SODIUM 100 MG SGL PO SCH ×2 (09:53→20:19)
[2016-10-30] MEDS: FERROUS SULFATE 325 MG TAB PO SCH ×2 (09:53→20:19)
[2016-10-30] MEDS: POTASSIUM CHLORIDE 10 MEQ TER PO SCH (09:53)
[2016-10-30] MEDS: AMLODIPINE 5 MG TAB PO SCH (09:54)
[2016-10-30] MEDS: PSYLLIUM 3.6 GM/1 TBS PDR PO SCH (09:54)
[2016-10-30] MEDS: HYDRALAZINE HYDROCHLORIDE 10 MG TAB PO SCH ×2 (09:57→20:18)
[2016-10-30] MEDS: LACTOBACILLUS ACIDOPHILUS/PE 1 TAB TAB PO SCH ×2 (09:57→20:18)
[2016-10-30] MEDS: FUROSEMIDE 40 MG TAB PO SCH (09:58)
[2016-10-30] MEDS: GABAPENTIN 100 MG CAP PO SCH (09:58)
[2016-10-30] MEDS: FLUCONAZOLE 100 MG TAB PO SCH (09:58)
[2016-10-30] MEDS: PANTOPRAZOLE SODIUM 40 MG ECT PO SCH (09:59)
[2016-10-30] MEDS: BUDESONIDE/FORMOTEROL 160/4.5 AER INH SCH ×2 (10:01→20:21)
[2016-10-30 11:44] LABS: UNIT TYPE O POSITIVE
[2016-10-30] MEDS ORDERED: SODIUM CHLORIDE 0.9% 500 ML 500 ML IV SCH (13:20)
[2016-10-30] MEDS: SODIUM CHLORIDE 0.9% FLUSH 10 ML SOL IV PRN (13:23)
[2016-10-30] MEDS: ALBUTEROL HFA 60 PUFF/INHALER INH PRN (18:39)
[2016-10-30] MEDS: GABAPENTIN 300 MG CAP PO SCH (20:19)
[2016-10-30] MEDS: ALBUTEROL NEB SOL 2.5MG/3ML 1 VIAL SOL NEB PRN (20:50)
[2016-10-31] MEDS: SODIUM CHLORIDE 0.9% FLUSH 10 ML SOL IV SCH ×4 (02:59→20:07)
[2016-10-31] MEDS: PIPERACILLIN/TAZOBACT 3.375 GM 3.375 GM in SODIUM CHLORIDE 0.9% 100 ML 100 ML IV SCH ×4 (02:59→20:08)
[2016-10-31] MEDS: PANTOPRAZOLE SODIUM 40 MG ECT PO SCH (09:57)
[2016-10-31] MEDS: HYDRALAZINE HYDROCHLORIDE 10 MG TAB PO SCH ×2 (09:57→20:04)
[2016-10-31] MEDS: AMLODIPINE 5 MG TAB PO SCH (09:57)
[2016-10-31] MEDS: FUROSEMIDE 40 MG TAB PO SCH (09:57)
[2016-10-31] MEDS: LACTOBACILLUS ACIDOPHILUS/PE 1 TAB TAB PO SCH ×2 (09:58→20:03)
[2016-10-31] MEDS: FLUCONAZOLE 100 MG TAB PO SCH (09:58)
[2016-10-31] MEDS: FERROUS SULFATE 325 MG TAB PO SCH ×2 (09:58→20:07)
[2016-10-31] MEDS: GABAPENTIN 100 MG CAP PO SCH (09:58)
[2016-10-31] MEDS: ACLIDINIUM BROMIDE 400 MCG INH SCH ×2 (10:00→20:03)
[2016-10-31] MEDS: DOCUSATE SODIUM 100 MG SGL PO SCH ×2 (10:00→20:07)
[2016-10-31] MEDS: PSYLLIUM 3.6 GM/1 TBS PDR PO SCH (10:00)
[2016-10-31] MEDS: BUDESONIDE/FORMOTEROL 160/4.5 AER INH SCH ×2 (10:02→20:08)
[2016-10-31] MEDS: POTASSIUM CHLORIDE 10 MEQ TER PO SCH (10:08)
[2016-10-31] MEDS: SODIUM CHLORIDE 0.9% FLUSH 10 ML SOL IV PRN (10:39)
[2016-10-31] MEDS: ALBUTEROL NEB SOL 2.5MG/3ML 1 VIAL SOL NEB PRN (20:04)
[2016-10-31] MEDS: GABAPENTIN 300 MG CAP PO SCH (20:07)
[2016-11-01] MEDS: PIPERACILLIN/TAZOBACT 3.375 GM 3.375 GM in SODIUM CHLORIDE 0.9% 100 ML 100 ML IV SCH ×4 (02:36→20:13)
[2016-11-01] MEDS: SODIUM CHLORIDE 0.9% FLUSH 10 ML SOL IV SCH ×4 (02:36→20:13)
[2016-11-01] MEDS: ACETAMINOPHEN 500 MG 500 MG TAB PO PRN ×2 (03:14→19:42)
[2016-11-01 07:10] LABS: CALCIUM 8.5 mg/dl (8.5-10.1); POTASSIUM 3.6 mMol/L (3.5-5.1)
[2016-11-01] MEDS: LACTOBACILLUS ACIDOPHILUS/PE 1 TAB TAB PO SCH ×2 (08:17→20:09)
[2016-11-01] MEDS: FLUCONAZOLE 100 MG TAB PO SCH (08:18)
[2016-11-01] MEDS: ACLIDINIUM BROMIDE 400 MCG INH SCH ×2 (08:18→20:09)
[2016-11-01] MEDS: PSYLLIUM 3.6 GM/1 TBS PDR PO SCH ×2 (08:19→08:28)
[2016-11-01] MEDS: FUROSEMIDE 40 MG TAB PO SCH (08:19)
[2016-11-01] MEDS: DOCUSATE SODIUM 100 MG SGL PO SCH ×3 (08:19→20:11)
[2016-11-01] MEDS: POTASSIUM CHLORIDE 10 MEQ TER PO SCH (08:21)
[2016-11-01] MEDS: FERROUS SULFATE 325 MG TAB PO SCH ×2 (08:22→20:11)
[2016-11-01] MEDS: AMLODIPINE 5 MG TAB PO SCH (08:22)
[2016-11-01] MEDS: GABAPENTIN 100 MG CAP PO SCH (08:22)
[2016-11-01] MEDS: PANTOPRAZOLE SODIUM 40 MG ECT PO SCH (08:22)
[2016-11-01] MEDS: HYDRALAZINE HYDROCHLORIDE 10 MG TAB PO SCH ×2 (08:22→20:09)
[2016-11-01] MEDS: BUDESONIDE/FORMOTEROL 160/4.5 AER INH SCH ×2 (08:23→20:48)
[2016-11-01] MEDS: SODIUM CHLORIDE 0.9% FLUSH 10 ML SOL IV PRN ×2 (09:17→20:47)
[2016-11-01] MEDS: GABAPENTIN 300 MG CAP PO SCH (20:11)
[2016-11-02] MEDS: PIPERACILLIN/TAZOBACT 3.375 GM 3.375 GM in SODIUM CHLORIDE 0.9% 100 ML 100 ML IV SCH ×4 (03:30→20:12)
[2016-11-02] MEDS: SODIUM CHLORIDE 0.9% FLUSH 10 ML SOL IV SCH ×5 (03:31→20:11)
[2016-11-02] MEDS: ACLIDINIUM BROMIDE 400 MCG INH SCH ×2 (08:10→20:08)
[2016-11-02] MEDS: BUDESONIDE/FORMOTEROL 160/4.5 AER INH SCH ×2 (08:10→20:15)
[2016-11-02] MEDS: DOCUSATE SODIUM 100 MG SGL PO SCH ×2 (08:18→20:10)
[2016-11-02] MEDS: PSYLLIUM 3.6 GM/1 TBS PDR PO SCH (08:18)
[2016-11-02] MEDS: LACTOBACILLUS ACIDOPHILUS/PE 1 TAB TAB PO SCH ×2 (08:19→20:08)
[2016-11-02] MEDS: FLUCONAZOLE 100 MG TAB PO SCH (08:19)
[2016-11-02] MEDS: PANTOPRAZOLE SODIUM 40 MG ECT PO SCH (08:20)
[2016-11-02] MEDS: FERROUS SULFATE 325 MG TAB PO SCH ×2 (08:20→20:10)
[2016-11-02] MEDS: FUROSEMIDE 40 MG TAB PO SCH (08:20)
[2016-11-02] MEDS: AMLODIPINE 5 MG TAB PO SCH (08:21)
[2016-11-02] MEDS: POTASSIUM CHLORIDE 10 MEQ TER PO SCH (08:21)
[2016-11-02] MEDS: HYDRALAZINE HYDROCHLORIDE 10 MG TAB PO SCH ×2 (08:21→20:09)
[2016-11-02] MEDS: GABAPENTIN 100 MG CAP PO SCH (08:22)
[2016-11-02] MEDS: ACETAMINOPHEN 500 MG 500 MG TAB PO PRN (13:48)
[2016-11-02] MEDS: GABAPENTIN 300 MG CAP PO SCH (20:11)
[2016-11-03] MEDS: SODIUM CHLORIDE 0.9% FLUSH 10 ML SOL IV SCH ×4 (03:13→20:45)
[2016-11-03] MEDS: PIPERACILLIN/TAZOBACT 3.375 GM 3.375 GM in SODIUM CHLORIDE 0.9% 100 ML 100 ML IV SCH ×4 (03:14→20:57)
[2016-11-03] MEDS: SODIUM CHLORIDE 0.9% FLUSH 10 ML SOL IV PRN (03:54)
[2016-11-03] MEDS: ACLIDINIUM BROMIDE 400 MCG INH SCH ×2 (09:04→20:47)
[2016-11-03] MEDS: PSYLLIUM 3.6 GM/1 TBS PDR PO SCH (09:04)
[2016-11-03] MEDS: BUDESONIDE/FORMOTEROL 160/4.5 AER INH SCH ×2 (09:04→20:48)
[2016-11-03] MEDS: DOCUSATE SODIUM 100 MG SGL PO SCH ×2 (09:04→20:45)
[2016-11-03] MEDS: FLUCONAZOLE 100 MG TAB PO SCH (09:05)
[2016-11-03] MEDS: LACTOBACILLUS ACIDOPHILUS/PE 1 TAB TAB PO SCH ×2 (09:06→20:44)
[2016-11-03] MEDS: PANTOPRAZOLE SODIUM 40 MG ECT PO SCH (09:07)
[2016-11-03] MEDS: GABAPENTIN 100 MG CAP PO SCH (09:07)
[2016-11-03] MEDS: HYDRALAZINE HYDROCHLORIDE 10 MG TAB PO SCH ×2 (09:08→20:45)
[2016-11-03] MEDS: AMLODIPINE 5 MG TAB PO SCH (09:08)
[2016-11-03] MEDS: POTASSIUM CHLORIDE 10 MEQ TER PO SCH (09:08)
[2016-11-03] MEDS: FERROUS SULFATE 325 MG TAB PO SCH ×2 (09:08→20:45)
[2016-11-03] MEDS: FUROSEMIDE 40 MG TAB PO SCH (09:08)
[2016-11-03] MEDS: ALBUTEROL NEB SOL 2.5MG/3ML 1 VIAL SOL NEB PRN (19:21)
[2016-11-03] MEDS: GABAPENTIN 300 MG CAP PO SCH (20:46)
[2016-11-04] MEDS: SODIUM CHLORIDE 0.9% FLUSH 10 ML SOL IV SCH ×4 (03:16→20:45)
[2016-11-04] MEDS: PIPERACILLIN/TAZOBACT 3.375 GM 3.375 GM in SODIUM CHLORIDE 0.9% 100 ML 100 ML IV SCH ×4 (03:16→21:01)
[2016-11-04] MEDS: SODIUM CHLORIDE 0.9% FLUSH 10 ML SOL IV PRN (03:49)
[2016-11-04 07:19] LABS: BASOPHILS % (AUTO) 2 % (0-3); EOSINOPHILS % (AUTO) 20 % (0-9); HEMATOCRIT 29 % (35-47); MEAN CORPUSCULAR HGB CONC 34.5 gm/dl (32.0-36.0); MONOCYTES % (AUTO) 9.1 % (0-12); NEUTROPHILS % (AUTO) 55.4 % (37-80)
[2016-11-04 07:20] LABS: ALBUMIN 2.5 gm/dl (3.4-5.0); CALCIUM 8.7 mg/dl (8.5-10.1); POTASSIUM 3.2 mMol/L (3.5-5.1)
[2016-11-04] MEDS: FLUCONAZOLE 100 MG TAB PO SCH (09:27)
[2016-11-04] MEDS: HYDRALAZINE HYDROCHLORIDE 10 MG TAB PO SCH ×2 (09:28→20:42)
[2016-11-04] MEDS: FUROSEMIDE 40 MG TAB PO SCH (09:31)
[2016-11-04] MEDS: POTASSIUM CHLORIDE 10 MEQ TER PO SCH ×3 (09:31→12:10)
[2016-11-04] MEDS: AMLODIPINE 5 MG TAB PO SCH (09:31)
[2016-11-04] MEDS: GABAPENTIN 100 MG CAP PO SCH (09:32)
[2016-11-04] MEDS: PANTOPRAZOLE SODIUM 40 MG ECT PO SCH (09:32)
[2016-11-04] MEDS: FERROUS SULFATE 325 MG TAB PO SCH ×2 (09:33→20:43)
[2016-11-04] MEDS: DOCUSATE SODIUM 100 MG SGL PO SCH ×2 (09:33→20:43)
[2016-11-04] MEDS: PSYLLIUM 3.6 GM/1 TBS PDR PO SCH (09:33)
[2016-11-04] MEDS: BUDESONIDE/FORMOTEROL 160/4.5 AER INH SCH ×2 (09:35→20:44)
[2016-11-04] MEDS: ACLIDINIUM BROMIDE 400 MCG INH SCH ×2 (09:35→20:42)
[2016-11-04] MEDS: LACTOBACILLUS ACIDOPHILUS/PE 1 TAB TAB PO SCH ×2 (12:21→20:41)
[2016-11-04] MEDS: ALBUTEROL NEB SOL 2.5MG/3ML 1 VIAL SOL NEB PRN (18:14)
[2016-11-04] MEDS: GABAPENTIN 300 MG CAP PO SCH (20:44)
[2016-11-05] MEDS: PIPERACILLIN/TAZOBACT 3.375 GM 3.375 GM in SODIUM CHLORIDE 0.9% 100 ML 100 ML IV SCH ×4 (02:33→21:19)
[2016-11-05] MEDS: SODIUM CHLORIDE 0.9% FLUSH 10 ML SOL IV SCH ×4 (02:34→21:04)
[2016-11-05] MEDS: AMLODIPINE 5 MG TAB PO SCH (09:49)
[2016-11-05] MEDS: DOCUSATE SODIUM 100 MG SGL PO SCH ×3 (09:49→21:27)
[2016-11-05] MEDS: PANTOPRAZOLE SODIUM 40 MG ECT PO SCH (09:50)
[2016-11-05] MEDS: LACTOBACILLUS ACIDOPHILUS/PE 1 TAB TAB PO SCH ×2 (09:50→20:57)
[2016-11-05] MEDS: ACLIDINIUM BROMIDE 400 MCG INH SCH ×2 (09:50→21:02)
[2016-11-05] MEDS: POTASSIUM CHLORIDE 10 MEQ TER PO SCH (09:50)
[2016-11-05] MEDS: GABAPENTIN 100 MG CAP PO SCH (09:51)
[2016-11-05] MEDS: PSYLLIUM 3.6 GM/1 TBS PDR PO SCH (09:51)
[2016-11-05] MEDS: HYDRALAZINE HYDROCHLORIDE 10 MG TAB PO SCH ×2 (09:51→20:59)
[2016-11-05] MEDS: FUROSEMIDE 40 MG TAB PO SCH (09:52)
[2016-11-05] MEDS: FLUCONAZOLE 100 MG TAB PO SCH (09:52)
[2016-11-05] MEDS: FERROUS SULFATE 325 MG TAB PO SCH ×2 (09:52→21:01)
[2016-11-05] MEDS: BUDESONIDE/FORMOTEROL 160/4.5 AER INH SCH ×2 (09:53→21:03)
[2016-11-05] MEDS: GABAPENTIN 300 MG CAP PO SCH (21:01)
[2016-11-05] MEDS: SODIUM CHLORIDE 0.9% FLUSH 10 ML SOL IV PRN (22:02)
[2016-11-06] MEDS: PIPERACILLIN/TAZOBACT 3.375 GM 3.375 GM in SODIUM CHLORIDE 0.9% 100 ML 100 ML IV SCH ×4 (03:10→20:18)
[2016-11-06] MEDS: SODIUM CHLORIDE 0.9% FLUSH 10 ML SOL IV SCH ×4 (03:10→20:18)
[2016-11-06] MEDS: SODIUM CHLORIDE 0.9% FLUSH 10 ML SOL IV PRN ×2 (03:38→21:46)
[2016-11-06] MEDS: LACTOBACILLUS ACIDOPHILUS/PE 1 TAB TAB PO SCH ×2 (09:39→20:15)
[2016-11-06] MEDS: FLUCONAZOLE 100 MG TAB PO SCH (09:39)
[2016-11-06] MEDS: BUDESONIDE/FORMOTEROL 160/4.5 AER INH SCH ×2 (09:39→20:18)
[2016-11-06] MEDS: ACLIDINIUM BROMIDE 400 MCG INH SCH ×2 (09:39→20:15)
[2016-11-06] MEDS: FERROUS SULFATE 325 MG TAB PO SCH ×2 (09:40→20:17)
[2016-11-06] MEDS: POTASSIUM CHLORIDE 10 MEQ TER PO SCH (09:40)
[2016-11-06] MEDS: FUROSEMIDE 40 MG TAB PO SCH (09:40)
[2016-11-06] MEDS: AMLODIPINE 5 MG TAB PO SCH (09:40)
[2016-11-06] MEDS: PSYLLIUM 3.6 GM/1 TBS PDR PO SCH (09:41)
[2016-11-06] MEDS: GABAPENTIN 100 MG CAP PO SCH (09:41)
[2016-11-06] MEDS: HYDRALAZINE HYDROCHLORIDE 10 MG TAB PO SCH ×2 (09:41→20:16)
[2016-11-06] MEDS: PANTOPRAZOLE SODIUM 40 MG ECT PO SCH (09:41)
[2016-11-06] MEDS: DOCUSATE SODIUM 100 MG SGL PO SCH ×2 (09:41→20:18)
[2016-11-06] MEDS: GABAPENTIN 300 MG CAP PO SCH (20:17)
[2016-11-07] MEDS: SODIUM CHLORIDE 0.9% FLUSH 10 ML SOL IV SCH ×4 (03:00→20:41)
[2016-11-07] MEDS: PIPERACILLIN/TAZOBACT 3.375 GM 3.375 GM in SODIUM CHLORIDE 0.9% 100 ML 100 ML IV SCH ×4 (03:00→20:41)
[2016-11-07] MEDS: SODIUM CHLORIDE 0.9% FLUSH 10 ML SOL IV PRN ×2 (03:44→21:22)
[2016-11-07] MEDS: FLUCONAZOLE 100 MG TAB PO SCH (08:28)
[2016-11-07] MEDS: LACTOBACILLUS ACIDOPHILUS/PE 1 TAB TAB PO SCH ×2 (08:28→20:45)
[2016-11-07] MEDS: GABAPENTIN 100 MG CAP PO SCH (08:29)
[2016-11-07] MEDS: FERROUS SULFATE 325 MG TAB PO SCH ×2 (08:29→20:47)
[2016-11-07] MEDS: AMLODIPINE 5 MG TAB PO SCH (08:29)
[2016-11-07] MEDS: PANTOPRAZOLE SODIUM 40 MG ECT PO SCH (08:30)
[2016-11-07] MEDS: FUROSEMIDE 40 MG TAB PO SCH (08:30)
[2016-11-07] MEDS: HYDRALAZINE HYDROCHLORIDE 10 MG TAB PO SCH ×2 (08:30→20:46)
[2016-11-07] MEDS: POTASSIUM CHLORIDE 10 MEQ TER PO SCH (08:30)
[2016-11-07] MEDS: BUDESONIDE/FORMOTEROL 160/4.5 AER INH SCH ×2 (08:31→20:49)
[2016-11-07] MEDS: ACLIDINIUM BROMIDE 400 MCG INH SCH ×2 (08:31→20:45)
[2016-11-07] MEDS: PSYLLIUM 3.6 GM/1 TBS PDR PO SCH (08:42)
[2016-11-07] MEDS: DOCUSATE SODIUM 100 MG SGL PO SCH ×2 (08:42→20:47)
[2016-11-07] MEDS: ALBUTEROL HFA 60 PUFF/INHALER INH PRN (13:31)
[2016-11-07] MEDS: ALBUTEROL NEB SOL 2.5MG/3ML 1 VIAL SOL NEB PRN (18:49)
[2016-11-07] MEDS: GABAPENTIN 300 MG CAP PO SCH (20:48)
[2016-11-08] MEDS: PIPERACILLIN/TAZOBACT 3.375 GM 3.375 GM in SODIUM CHLORIDE 0.9% 100 ML 100 ML IV SCH ×4 (03:01→20:44)
[2016-11-08] MEDS: SODIUM CHLORIDE 0.9% FLUSH 10 ML SOL IV SCH ×4 (03:01→20:43)
[2016-11-08] MEDS: ACLIDINIUM BROMIDE 400 MCG INH SCH ×2 (08:37→20:43)
[2016-11-08] MEDS: BUDESONIDE/FORMOTEROL 160/4.5 AER INH SCH ×2 (08:38→20:45)
[2016-11-08] MEDS ORDERED: PIPERACILLIN/TAZOBACT 3.375 GM PDS IV ONE (08:54)
[2016-11-08] MEDS: FERROUS SULFATE 325 MG TAB PO SCH ×2 (09:30→20:45)
[2016-11-08] MEDS: HYDRALAZINE HYDROCHLORIDE 10 MG TAB PO SCH ×2 (09:30→20:46)
[2016-11-08] MEDS: LACTOBACILLUS ACIDOPHILUS/PE 1 TAB TAB PO SCH ×2 (09:30→20:43)
[2016-11-08] MEDS: FLUCONAZOLE 100 MG TAB PO SCH (09:30)
[2016-11-08] MEDS: GABAPENTIN 100 MG CAP PO SCH (09:31)
[2016-11-08] MEDS: PANTOPRAZOLE SODIUM 40 MG ECT PO SCH (09:31)
[2016-11-08] MEDS: AMLODIPINE 5 MG TAB PO SCH (09:31)
[2016-11-08] MEDS: FUROSEMIDE 40 MG TAB PO SCH (09:31)
[2016-11-08] MEDS: POTASSIUM CHLORIDE 10 MEQ TER PO SCH (09:31)
[2016-11-08] MEDS: PSYLLIUM 3.6 GM/1 TBS PDR PO SCH (09:37)
[2016-11-08] MEDS: DOCUSATE SODIUM 100 MG SGL PO SCH ×2 (09:37→20:47)
[2016-11-08] MEDS: GABAPENTIN 300 MG CAP PO SCH (20:44)
[2016-11-09] MEDS: PIPERACILLIN/TAZOBACT 3.375 GM 3.375 GM in SODIUM CHLORIDE 0.9% 100 ML 100 ML IV SCH ×4 (03:07→20:51)
[2016-11-09] MEDS: SODIUM CHLORIDE 0.9% FLUSH 10 ML SOL IV SCH ×4 (03:07→20:51)
[2016-11-09] MEDS: BUDESONIDE/FORMOTEROL 160/4.5 AER INH SCH ×2 (08:22→21:07)
[2016-11-09] MEDS: ACLIDINIUM BROMIDE 400 MCG INH SCH ×2 (08:23→21:04)
[2016-11-09] MEDS: LACTOBACILLUS ACIDOPHILUS/PE 1 TAB TAB PO SCH ×2 (08:25→21:03)
[2016-11-09] MEDS: FLUCONAZOLE 100 MG TAB PO SCH (08:26)
[2016-11-09] MEDS: HYDRALAZINE HYDROCHLORIDE 10 MG TAB PO SCH ×2 (08:26→21:05)
[2016-11-09] MEDS: GABAPENTIN 100 MG CAP PO SCH (08:26)
[2016-11-09] MEDS: POTASSIUM CHLORIDE 10 MEQ TER PO SCH (08:26)
[2016-11-09] MEDS: FERROUS SULFATE 325 MG TAB PO SCH ×2 (08:26→21:05)
[2016-11-09] MEDS: AMLODIPINE 5 MG TAB PO SCH (08:26)
[2016-11-09] MEDS: FUROSEMIDE 40 MG TAB PO SCH (08:26)
[2016-11-09] MEDS: PANTOPRAZOLE SODIUM 40 MG ECT PO SCH (08:27)
[2016-11-09] MEDS: PSYLLIUM 3.6 GM/1 TBS PDR PO SCH (08:29)
[2016-11-09] MEDS: DOCUSATE SODIUM 100 MG SGL PO SCH (08:29)
[2016-11-09] MEDS: ALBUTEROL NEB SOL 2.5MG/3ML 1 VIAL SOL NEB PRN (08:53)
[2016-11-09] MEDS ORDERED: PSYLLIUM 3.6 GM/1 TBS PDR PO PRN (12:51)
[2016-11-09] MEDS ORDERED: DOCUSATE SODIUM 100 MG SGL PO PRN (12:51)
[2016-11-09] MEDS: ALBUTEROL NEB SOL 2.5MG/3ML 1 VIAL SOL NEB SCH ×2 (16:52→21:07)
[2016-11-09] MEDS: GABAPENTIN 300 MG CAP PO SCH (21:05)
[2016-11-10] MEDS: PIPERACILLIN/TAZOBACT 3.375 GM 3.375 GM in SODIUM CHLORIDE 0.9% 100 ML 100 ML IV SCH ×4 (02:57→20:26)
[2016-11-10] MEDS: SODIUM CHLORIDE 0.9% FLUSH 10 ML SOL IV SCH ×4 (02:57→20:26)
[2016-11-10] MEDS: LACTOBACILLUS ACIDOPHILUS/PE 1 TAB TAB PO SCH ×2 (08:11→20:34)
[2016-11-10] MEDS: HYDRALAZINE HYDROCHLORIDE 10 MG TAB PO SCH ×2 (08:12→20:35)
[2016-11-10] MEDS: PANTOPRAZOLE SODIUM 40 MG ECT PO SCH (08:12)
[2016-11-10] MEDS: POTASSIUM CHLORIDE 10 MEQ TER PO SCH (08:12)
[2016-11-10] MEDS: AMLODIPINE 5 MG TAB PO SCH (08:12)
[2016-11-10] MEDS: ACLIDINIUM BROMIDE 400 MCG INH SCH ×2 (08:12→20:34)
[2016-11-10] MEDS: FUROSEMIDE 40 MG TAB PO SCH (08:12)
[2016-11-10] MEDS: GABAPENTIN 100 MG CAP PO SCH (08:12)
[2016-11-10] MEDS: FLUCONAZOLE 100 MG TAB PO SCH (08:12)
[2016-11-10] MEDS: FERROUS SULFATE 325 MG TAB PO SCH ×2 (08:12→20:35)
[2016-11-10] MEDS: BUDESONIDE/FORMOTEROL 160/4.5 AER INH SCH ×2 (08:13→20:36)
[2016-11-10] MEDS: ALBUTEROL NEB SOL 2.5MG/3ML 1 VIAL SOL NEB SCH ×4 (09:28→21:04)
[2016-11-10] MEDS: GABAPENTIN 300 MG CAP PO SCH (20:34)
[2016-11-11] MEDS: PIPERACILLIN/TAZOBACT 3.375 GM 3.375 GM in SODIUM CHLORIDE 0.9% 100 ML 100 ML IV SCH ×4 (02:58→20:49)
[2016-11-11] MEDS: SODIUM CHLORIDE 0.9% FLUSH 10 ML SOL IV SCH ×4 (02:59→20:51)
[2016-11-11] MEDS: SODIUM CHLORIDE 0.9% FLUSH 10 ML SOL IV PRN (03:33)
[2016-11-11 07:19] LABS: ALBUMIN 2.5 gm/dl (3.4-5.0); CALCIUM 8.7 mg/dl (8.5-10.1); POTASSIUM 3.2 mMol/L (3.5-5.1)
[2016-11-11 07:50] LABS: BASOPHILS % (AUTO) 2 % (0-3); EOSINOPHILS % (AUTO) 11 % (0-9); HEMATOCRIT 30 % (35-47); MEAN CORPUSCULAR HGB CONC 33.5 gm/dl (32.0-36.0); NEUTROPHILS % (AUTO) 63.3 % (37-80)
[2016-11-11] MEDS: FUROSEMIDE 40 MG TAB PO SCH (08:52)
[2016-11-11] MEDS: PANTOPRAZOLE SODIUM 40 MG ECT PO SCH (08:52)
[2016-11-11] MEDS: LACTOBACILLUS ACIDOPHILUS/PE 1 TAB TAB PO SCH ×2 (08:52→21:00)
[2016-11-11] MEDS: FLUCONAZOLE 100 MG TAB PO SCH (08:52)
[2016-11-11] MEDS: GABAPENTIN 100 MG CAP PO SCH (08:53)
[2016-11-11] MEDS: POTASSIUM CHLORIDE 10 MEQ TER PO SCH ×4 (08:53→16:12)
[2016-11-11] MEDS: AMLODIPINE 5 MG TAB PO SCH (08:53)
[2016-11-11] MEDS: FERROUS SULFATE 325 MG TAB PO SCH ×2 (08:53→21:01)
[2016-11-11] MEDS: HYDRALAZINE HYDROCHLORIDE 10 MG TAB PO SCH ×2 (08:53→21:01)
[2016-11-11] MEDS: ACLIDINIUM BROMIDE 400 MCG INH SCH ×2 (08:55→21:00)
[2016-11-11] MEDS: BUDESONIDE/FORMOTEROL 160/4.5 AER INH SCH ×2 (08:55→21:02)
[2016-11-11] MEDS: ALBUTEROL NEB SOL 2.5MG/3ML 1 VIAL SOL NEB SCH ×4 (09:29→20:56)
[2016-11-11] MEDS ORDERED: FUROSEMIDE 40 MG TAB PO ONE (18:20)
[2016-11-11] MEDS: GABAPENTIN 300 MG CAP PO SCH (21:02)
[2016-11-12] MEDS: SODIUM CHLORIDE 0.9% FLUSH 10 ML SOL IV SCH ×4 (02:42→20:27)
[2016-11-12] MEDS: PIPERACILLIN/TAZOBACT 3.375 GM 3.375 GM in SODIUM CHLORIDE 0.9% 100 ML 100 ML IV SCH ×4 (02:42→20:27)
[2016-11-12] MEDS: LACTOBACILLUS ACIDOPHILUS/PE 1 TAB TAB PO SCH ×3 (05:17→20:27)
[2016-11-12] MEDS: ACLIDINIUM BROMIDE 400 MCG INH SCH ×3 (05:18→20:27)
[2016-11-12] MEDS: HYDRALAZINE HYDROCHLORIDE 10 MG TAB PO SCH ×3 (05:18→20:25)
[2016-11-12] MEDS: FLUCONAZOLE 100 MG TAB PO SCH ×2 (05:19→08:56)
[2016-11-12] MEDS: FERROUS SULFATE 325 MG TAB PO SCH ×3 (05:20→20:26)
[2016-11-12] MEDS: POTASSIUM CHLORIDE 10 MEQ TER PO SCH ×2 (05:20→08:56)
[2016-11-12] MEDS: FUROSEMIDE 40 MG TAB PO SCH ×2 (05:21→08:56)
[2016-11-12] MEDS: BUDESONIDE/FORMOTEROL 160/4.5 AER INH SCH ×3 (05:21→20:28)
[2016-11-12] MEDS: GABAPENTIN 100 MG CAP PO SCH ×2 (05:22→08:56)
[2016-11-12] MEDS: AMLODIPINE 5 MG TAB PO SCH ×2 (05:22→08:57)
[2016-11-12] MEDS: PANTOPRAZOLE SODIUM 40 MG ECT PO SCH ×2 (05:23→08:57)
[2016-11-12] MEDS: ALBUTEROL NEB SOL 2.5MG/3ML 1 VIAL SOL NEB SCH ×5 (05:25→20:36)
[2016-11-12] MEDS: GABAPENTIN 300 MG CAP PO SCH (20:26)
[2016-11-13] MEDS: SODIUM CHLORIDE 0.9% FLUSH 10 ML SOL IV SCH ×5 (03:22→20:57)
[2016-11-13] MEDS: PIPERACILLIN/TAZOBACT 3.375 GM 3.375 GM in SODIUM CHLORIDE 0.9% 100 ML 100 ML IV SCH ×4 (03:22→20:57)
[2016-11-13] MEDS: AMLODIPINE 5 MG TAB PO SCH (08:55)
[2016-11-13] MEDS: LACTOBACILLUS ACIDOPHILUS/PE 1 TAB TAB PO SCH ×2 (08:56→21:23)
[2016-11-13] MEDS: ACLIDINIUM BROMIDE 400 MCG INH SCH ×2 (08:56→20:58)
[2016-11-13] MEDS: FLUCONAZOLE 100 MG TAB PO SCH (08:57)
[2016-11-13] MEDS: GABAPENTIN 100 MG CAP PO SCH (08:57)
[2016-11-13] MEDS: FERROUS SULFATE 325 MG TAB PO SCH ×2 (08:57→20:56)
[2016-11-13] MEDS: BUDESONIDE/FORMOTEROL 160/4.5 AER INH SCH ×2 (08:58→20:58)
[2016-11-13] MEDS: FUROSEMIDE 40 MG TAB PO SCH (08:59)
[2016-11-13] MEDS: ALBUTEROL NEB SOL 2.5MG/3ML 1 VIAL SOL NEB SCH ×4 (08:59→21:00)
[2016-11-13] MEDS: HYDRALAZINE HYDROCHLORIDE 10 MG TAB PO SCH ×2 (08:59→20:56)
[2016-11-13] MEDS: PANTOPRAZOLE SODIUM 40 MG ECT PO SCH (08:59)
[2016-11-13] MEDS ORDERED: POTASSIUM CHLORIDE 10 MEQ TER PO SCH (09:00)
[2016-11-13 09:16] LABS: CALCIUM 9.4 mg/dl (8.5-10.1); POTASSIUM 3.7 mMol/L (3.5-5.1)
[2016-11-13] MEDS: POTASSIUM CHLORIDE 10 MEQ CAPSULE PO SCH (09:50)
[2016-11-13] MEDS ORDERED: SODIUM CHLORIDE 0.9% 1000 ML SOL IV SCH (10:30)
[2016-11-13] MEDS: GABAPENTIN 300 MG CAP PO SCH (20:56)
[2016-11-14] MEDS: SODIUM CHLORIDE 0.9% FLUSH 10 ML SOL IV SCH ×4 (02:57→21:10)
[2016-11-14] MEDS: PIPERACILLIN/TAZOBACT 3.375 GM 3.375 GM in SODIUM CHLORIDE 0.9% 100 ML 100 ML IV SCH ×4 (02:57→21:10)
[2016-11-14 07:20] LABS: CALCIUM 8.9 mg/dl (8.5-10.1); POTASSIUM 3.5 mMol/L (3.5-5.1)
[2016-11-14] MEDS: HYDRALAZINE HYDROCHLORIDE 10 MG TAB PO SCH ×2 (08:52→21:08)
[2016-11-14] MEDS: FERROUS SULFATE 325 MG TAB PO SCH ×2 (08:52→21:09)
[2016-11-14] MEDS: AMLODIPINE 5 MG TAB PO SCH (08:53)
[2016-11-14] MEDS: GABAPENTIN 100 MG CAP PO SCH (08:53)
[2016-11-14] MEDS: FUROSEMIDE 40 MG TAB PO SCH (08:53)
[2016-11-14] MEDS: PANTOPRAZOLE SODIUM 40 MG ECT PO SCH (08:54)
[2016-11-14] MEDS ORDERED: POTASSIUM CHLORIDE 10 MEQ CAPSULE PO SCH (09:00)
[2016-11-14] MEDS: POTASSIUM CHLORIDE 10 MEQ CAPSULE PO SCH (09:03)
[2016-11-14] MEDS: ACLIDINIUM BROMIDE 400 MCG INH SCH ×2 (09:04→21:08)
[2016-11-14] MEDS: ALBUTEROL NEB SOL 2.5MG/3ML 1 VIAL SOL NEB SCH ×4 (09:05→21:09)
[2016-11-14] MEDS: BUDESONIDE/FORMOTEROL 160/4.5 AER INH SCH ×2 (09:14→21:10)
[2016-11-14] MEDS: FLUCONAZOLE 100 MG TAB PO SCH (09:15)
[2016-11-14] MEDS: LACTOBACILLUS ACIDOPHILUS/PE 1 TAB TAB PO SCH ×2 (09:15→21:08)
[2016-11-14] MEDS: GABAPENTIN 300 MG CAP PO SCH (21:09)
[2016-11-15] MEDS: PIPERACILLIN/TAZOBACT 3.375 GM 3.375 GM in SODIUM CHLORIDE 0.9% 100 ML 100 ML IV SCH ×2 (02:24→09:16)
[2016-11-15] MEDS: SODIUM CHLORIDE 0.9% FLUSH 10 ML SOL IV SCH ×4 (02:25→20:41)
[2016-11-15] MEDS: AMLODIPINE 5 MG TAB PO SCH (09:13)
[2016-11-15] MEDS: LACTOBACILLUS ACIDOPHILUS/PE 1 TAB TAB PO SCH ×2 (09:14→20:36)
[2016-11-15] MEDS: ACLIDINIUM BROMIDE 400 MCG INH SCH ×2 (09:15→20:36)
[2016-11-15] MEDS: FLUCONAZOLE 100 MG TAB PO SCH (09:17)
[2016-11-15] MEDS: FERROUS SULFATE 325 MG TAB PO SCH ×2 (09:17→20:37)
[2016-11-15] MEDS: GABAPENTIN 100 MG CAP PO SCH (09:17)
[2016-11-15] MEDS: BUDESONIDE/FORMOTEROL 160/4.5 AER INH SCH ×2 (09:17→20:39)
[2016-11-15] MEDS: PANTOPRAZOLE SODIUM 40 MG ECT PO SCH (09:18)
[2016-11-15] MEDS: FUROSEMIDE 40 MG TAB PO SCH (09:18)
[2016-11-15] MEDS: HYDRALAZINE HYDROCHLORIDE 10 MG TAB PO SCH ×2 (09:18→20:37)
[2016-11-15] MEDS: POTASSIUM CHLORIDE 10 MEQ TER PO SCH (09:19)
[2016-11-15] MEDS: PIPERACILLIN/TAZOBACT 3.375 GM 2.25 GM in SODIUM CHLORIDE 0.9% 100 ML 100 ML IV SCH ×2 (15:06→20:40)
[2016-11-15] MEDS: GABAPENTIN 300 MG CAP PO SCH (20:39)
[2016-11-16] MEDS: PIPERACILLIN/TAZOBACT 3.375 GM 2.25 GM in SODIUM CHLORIDE 0.9% 100 ML 100 ML IV SCH ×4 (03:05→20:37)
[2016-11-16] MEDS: SODIUM CHLORIDE 0.9% FLUSH 10 ML SOL IV SCH ×4 (03:06→20:44)
[2016-11-16] MEDS: LACTOBACILLUS ACIDOPHILUS/PE 1 TAB TAB PO SCH ×2 (08:41→20:43)
[2016-11-16] MEDS: FLUCONAZOLE 100 MG TAB PO SCH (08:42)
[2016-11-16] MEDS: AMLODIPINE 5 MG TAB PO SCH (08:42)
[2016-11-16] MEDS: FERROUS SULFATE 325 MG TAB PO SCH ×2 (08:42→20:43)
[2016-11-16] MEDS: POTASSIUM CHLORIDE 10 MEQ TER PO SCH (08:42)
[2016-11-16] MEDS: PANTOPRAZOLE SODIUM 40 MG ECT PO SCH (08:43)
[2016-11-16] MEDS: HYDRALAZINE HYDROCHLORIDE 10 MG TAB PO SCH ×2 (08:43→20:43)
[2016-11-16] MEDS: FUROSEMIDE 40 MG TAB PO SCH (08:44)
[2016-11-16] MEDS: GABAPENTIN 100 MG CAP PO SCH (08:44)
[2016-11-16] MEDS: BUDESONIDE/FORMOTEROL 160/4.5 AER INH SCH ×2 (08:46→20:40)
[2016-11-16] MEDS: ACLIDINIUM BROMIDE 400 MCG INH SCH ×2 (08:47→20:40)
[2016-11-16] MEDS: ALBUTEROL NEB SOL 2.5MG/3ML 1 VIAL SOL NEB PRN ×2 (19:01→22:41)
[2016-11-16] MEDS: GABAPENTIN 300 MG CAP PO SCH (20:44)
[2016-11-17] MEDS: PIPERACILLIN/TAZOBACT 3.375 GM 2.25 GM in SODIUM CHLORIDE 0.9% 100 ML 100 ML IV SCH ×4 (03:29→21:06)
[2016-11-17] MEDS: SODIUM CHLORIDE 0.9% FLUSH 10 ML SOL IV SCH ×4 (03:30→21:10)
[2016-11-17] MEDS: LACTOBACILLUS ACIDOPHILUS/PE 1 TAB TAB PO SCH ×2 (08:20→21:10)
[2016-11-17] MEDS: BUDESONIDE/FORMOTEROL 160/4.5 AER INH SCH ×2 (08:21→21:11)
[2016-11-17] MEDS: FLUCONAZOLE 100 MG TAB PO SCH (08:21)
[2016-11-17] MEDS: FERROUS SULFATE 325 MG TAB PO SCH ×2 (08:23→21:10)
[2016-11-17] MEDS: AMLODIPINE 5 MG TAB PO SCH (08:23)
[2016-11-17] MEDS: GABAPENTIN 100 MG CAP PO SCH (08:23)
[2016-11-17] MEDS: POTASSIUM CHLORIDE 10 MEQ TER PO SCH (08:23)
[2016-11-17] MEDS: PANTOPRAZOLE SODIUM 40 MG ECT PO SCH (08:24)
[2016-11-17] MEDS: FUROSEMIDE 40 MG TAB PO SCH (08:24)
[2016-11-17] MEDS: HYDRALAZINE HYDROCHLORIDE 10 MG TAB PO SCH ×2 (08:24→21:11)
[2016-11-17] MEDS: ACLIDINIUM BROMIDE 400 MCG INH SCH ×2 (08:24→21:09)
[2016-11-17] MEDS: GABAPENTIN 300 MG CAP PO SCH (21:10)
[2016-11-18] MEDS: SODIUM CHLORIDE 0.9% FLUSH 10 ML SOL IV SCH ×4 (02:56→21:28)
[2016-11-18] MEDS: PIPERACILLIN/TAZOBACT 3.375 GM 2.25 GM in SODIUM CHLORIDE 0.9% 100 ML 100 ML IV SCH ×4 (02:56→21:27)
[2016-11-18 07:13] LABS: BASOPHILS % (AUTO) 1 % (0-3); EOSINOPHILS % (AUTO) 15 % (0-9); HEMATOCRIT 30 % (35-47); MEAN CORPUSCULAR HGB CONC 34.1 gm/dl (32.0-36.0); MONOCYTES % (AUTO) 10.1 % (0-12); NEUTROPHILS % (AUTO) 62.8 % (37-80)
[2016-11-18] MEDS: FERROUS SULFATE 325 MG TAB PO SCH ×2 (08:46→21:33)
[2016-11-18] MEDS: HYDRALAZINE HYDROCHLORIDE 10 MG TAB PO SCH ×2 (08:46→21:32)
[2016-11-18] MEDS: LACTOBACILLUS ACIDOPHILUS/PE 1 TAB TAB PO SCH ×2 (08:46→21:31)
[2016-11-18] MEDS: FLUCONAZOLE 100 MG TAB PO SCH (08:46)
[2016-11-18] MEDS: POTASSIUM CHLORIDE 10 MEQ TER PO SCH (08:46)
[2016-11-18] MEDS: ACLIDINIUM BROMIDE 400 MCG INH SCH ×2 (08:46→21:32)
[2016-11-18] MEDS: GABAPENTIN 100 MG CAP PO SCH (08:47)
[2016-11-18] MEDS: FUROSEMIDE 40 MG TAB PO SCH (08:47)
[2016-11-18] MEDS: AMLODIPINE 5 MG TAB PO SCH (08:47)
[2016-11-18] MEDS: PANTOPRAZOLE SODIUM 40 MG ECT PO SCH (08:47)
[2016-11-18] MEDS: BUDESONIDE/FORMOTEROL 160/4.5 AER INH SCH ×2 (08:47→21:35)
[2016-11-18] MEDS: ALBUTEROL NEB SOL 2.5MG/3ML 1 VIAL SOL NEB PRN (14:04)
[2016-11-18] MEDS: ALBUTEROL HFA 60 PUFF/INHALER INH PRN (19:17)
[2016-11-18] MEDS: GABAPENTIN 300 MG CAP PO SCH (21:33)
[2016-11-19] MEDS: SODIUM CHLORIDE 0.9% FLUSH 10 ML SOL IV SCH ×4 (02:59→21:36)
[2016-11-19] MEDS: PIPERACILLIN/TAZOBACT 3.375 GM 2.25 GM in SODIUM CHLORIDE 0.9% 100 ML 100 ML IV SCH ×4 (02:59→21:35)
[2016-11-19] MEDS: ACLIDINIUM BROMIDE 400 MCG INH SCH ×2 (09:03→21:36)
[2016-11-19] MEDS: FUROSEMIDE 40 MG TAB PO SCH (09:03)
[2016-11-19] MEDS: FERROUS SULFATE 325 MG TAB PO SCH ×2 (09:04→21:40)
[2016-11-19] MEDS: HYDRALAZINE HYDROCHLORIDE 10 MG TAB PO SCH ×2 (09:04→21:41)
[2016-11-19] MEDS: POTASSIUM CHLORIDE 10 MEQ TER PO SCH (09:04)
[2016-11-19] MEDS: PANTOPRAZOLE SODIUM 40 MG ECT PO SCH (09:04)
[2016-11-19] MEDS: BUDESONIDE/FORMOTEROL 160/4.5 AER INH SCH ×2 (09:05→21:36)
[2016-11-19] MEDS: FLUCONAZOLE 100 MG TAB PO SCH (09:05)
[2016-11-19] MEDS: GABAPENTIN 100 MG CAP PO SCH (09:05)
[2016-11-19] MEDS: LACTOBACILLUS ACIDOPHILUS/PE 1 TAB TAB PO SCH ×2 (09:05→21:40)
[2016-11-19] MEDS: AMLODIPINE 5 MG TAB PO SCH (09:06)
[2016-11-19] MEDS: SODIUM CHLORIDE 0.9% FLUSH 10 ML SOL IV PRN ×2 (09:48→15:48)
[2016-11-19] MEDS: GABAPENTIN 300 MG CAP PO SCH (21:39)
[2016-11-20] MEDS: SODIUM CHLORIDE 0.9% FLUSH 10 ML SOL IV SCH ×4 (02:44→21:44)
[2016-11-20] MEDS: PIPERACILLIN/TAZOBACT 3.375 GM 2.25 GM in SODIUM CHLORIDE 0.9% 100 ML 100 ML IV SCH ×4 (02:44→21:37)
[2016-11-20] MEDS: POTASSIUM CHLORIDE 10 MEQ TER PO SCH (08:22)
[2016-11-20] MEDS: ACLIDINIUM BROMIDE 400 MCG INH SCH ×2 (08:22→21:36)
[2016-11-20] MEDS: PANTOPRAZOLE SODIUM 40 MG ECT PO SCH (08:23)
[2016-11-20] MEDS: HYDRALAZINE HYDROCHLORIDE 10 MG TAB PO SCH ×2 (08:23→21:43)
[2016-11-20] MEDS: FERROUS SULFATE 325 MG TAB PO SCH ×2 (08:23→21:43)
[2016-11-20] MEDS: GABAPENTIN 100 MG CAP PO SCH (08:23)
[2016-11-20] MEDS: AMLODIPINE 5 MG TAB PO SCH (08:23)
[2016-11-20] MEDS: FUROSEMIDE 40 MG TAB PO SCH (08:24)
[2016-11-20] MEDS: BUDESONIDE/FORMOTEROL 160/4.5 AER INH SCH ×2 (08:24→21:37)
[2016-11-20] MEDS: LACTOBACILLUS ACIDOPHILUS/PE 1 TAB TAB PO SCH ×2 (08:25→21:42)
[2016-11-20] MEDS: FLUCONAZOLE 100 MG TAB PO SCH (08:25)
[2016-11-20] MEDS: GABAPENTIN 300 MG CAP PO SCH (21:43)
[2016-11-21] MEDS: PIPERACILLIN/TAZOBACT 3.375 GM 2.25 GM in SODIUM CHLORIDE 0.9% 100 ML 100 ML IV SCH ×3 (02:55→16:00)
[2016-11-21] MEDS: SODIUM CHLORIDE 0.9% FLUSH 10 ML SOL IV SCH ×3 (02:55→15:59)
[2016-11-21 08:05] VITALS: BP 129/72; PULSE 86; RESP 18; TEMP 98; O2SAT 97
[2016-11-21] MEDS: POTASSIUM CHLORIDE 10 MEQ TER PO SCH (08:25)
[2016-11-21] MEDS: AMLODIPINE 5 MG TAB PO SCH (08:26)
[2016-11-21] MEDS: HYDRALAZINE HYDROCHLORIDE 10 MG TAB PO SCH (08:26)
[2016-11-21] MEDS: PANTOPRAZOLE SODIUM 40 MG ECT PO SCH (08:26)
[2016-11-21] MEDS: GABAPENTIN 100 MG CAP PO SCH (08:26)
[2016-11-21] MEDS: FLUCONAZOLE 100 MG TAB PO SCH (08:27)
[2016-11-21] MEDS: FUROSEMIDE 40 MG TAB PO SCH (08:27)
[2016-11-21] MEDS: ACLIDINIUM BROMIDE 400 MCG INH SCH (08:29)
[2016-11-21] MEDS: LACTOBACILLUS ACIDOPHILUS/PE 1 TAB TAB PO SCH (08:29)
[2016-11-21] MEDS: BUDESONIDE/FORMOTEROL 160/4.5 AER INH SCH (08:30)
[2016-11-21] MEDS: FERROUS SULFATE 325 MG TAB PO SCH (08:34)
[2016-11-21] MEDS: SODIUM CHLORIDE 0.9% FLUSH 10 ML SOL IV PRN (09:06)
== END 2016-11-21 18:35 | disposition home or self-care (01) | DRG 872 ==
LOC: ACUTE CARE 16:42
PROVIDERS: ADMIT Family Medicine; ATTEND Family Medicine
PROC: F01ZDFZ Gait and/or Balance Assessment using Assistive, Adaptive, Supportive or Protective Equipment (ICD-10-PCS; principal; 2016-10-05)
PROC: F01ZBZZ Bed Mobility Assessment (ICD-10-PCS; 2016-10-05)
PROC: F01ZCZZ Transfer Assessment (ICD-10-PCS; 2016-10-05)
PROC: F02Z1ZZ Dressing Assessment (ICD-10-PCS; 2016-10-05)
PROC: F02Z3ZZ Grooming/Personal Hygiene Assessment (ICD-10-PCS; 2016-10-05)
PROC: F02Z0ZZ Bathing/Showering Assessment (ICD-10-PCS; 2016-10-05)
PROC: 30243N1 Transfusion of Nonautologous Red Blood Cells into Central Vein, Percutaneous Approach (ICD-10-PCS; 2016-10-30)
DX: A41.9 Sepsis, unspecified organism (principal); M86.18 Other acute osteomyelitis, other site; J43.9 Emphysema, unspecified; I48.91 Unspecified atrial fibrillation; I12.9 Hypertensive chronic kidney disease with stage 1 through stage 4 chronic kidney disease, or unspecified chronic kidney disease; N18.3 Chronic kidney disease, stage 3 (moderate); B37.2 Candidiasis of skin and nail; D64.9 Anemia, unspecified; N82.0 Vesicovaginal fistula; L89.621 Pressure ulcer of left heel, stage 1; L89.611 Pressure ulcer of right heel, stage 1; Z93.6 Other artificial openings of urinary tract status; M84.350A Stress fracture, pelvis, initial encounter for fracture; B96.89 Other specified bacterial agents as the cause of diseases classified elsewhere; R60.9 Edema, unspecified; R19.5 Other fecal abnormalities; E87.6 Hypokalemia
CPT/HCPCS: 36415; 80048; 80053; 80061; 82272; 82565; 84132; 84460; 85018; 85025; 86850; 86900; 86901; 86920; 93005; 94150; 94760; 99070; 99211; J2543; J7603; P9016; A4450; A6219; A6232; A6402

== ENCOUNTER 2017-07-31 14:41 | Inpatient (IN) | payer OTHER ==
[2017-07-31] MEDS ORDERED: VANCOMYCIN IV SCH (20:15)
[2017-07-31] MEDS ORDERED: ANIDULAFUNGIN 100 MG IV SCH (20:15)
[2017-07-31] MEDS ORDERED: VANCOMYCIN HCL IV SCH (22:45)
[2017-07-31] MEDS ORDERED: PDS IV SCH (22:45)
[2017-07-31] MEDS ORDERED: SODIUM CHLORIDE 0.9% IV SCH (22:45)
[2017-07-31] MEDS: ACETAMINOPHEN 500 MG 500 MG TAB PEG PRN (23:22)
[2017-07-31] MEDS: CARVEDILOL 12.5 MG TAB PEG SCH (23:23)
[2017-08-01] MEDS: ACLIDINIUM BROMIDE INH SCH ×3 (00:25→20:25)
[2017-08-01] MEDS: Non-Formulary Medication MISC (Budesonide/Formoterol 160/4.5 1 PUFF) INH SCH ×2 (00:26→15:00)
[2017-08-01] MEDS: LANSOPRAZOLE 3 MG/ML PEG SCH ×3 (02:38→20:27)
[2017-08-01] MEDS ORDERED: ALBUTEROL NEB SOL 2.5MG/3ML 1 VIAL SOL NEB PRN (08:27)
[2017-08-01] MEDS ORDERED: SODIUM CHLORIDE 0.9% 250 ML 250 ML IV ONE (08:51)
[2017-08-01] MEDS ORDERED: VANCOMYCIN HYDROCHLORIDE 500 MG PDS IV ONE (08:51)
[2017-08-01] MEDS ORDERED: AMLODIPINE 5 MG TAB PEG SCH (09:00)
[2017-08-01] MEDS: SODIUM CHLORIDE 0.9% IV SCH (09:17)
[2017-08-01] MEDS: VANCOMYCIN HCL IV SCH (09:17)
[2017-08-01] MEDS: PDS IV SCH (09:17)
[2017-08-01] MEDS: SODIUM CHLORIDE 0.9% FLUSH 10 ML SOL IV SCH ×3 (09:18→15:48)
[2017-08-01] MEDS: ACETAMINOPHEN 500 MG 500 MG TAB PEG PRN ×3 (09:25→22:52)
[2017-08-01] MEDS: FUROSEMIDE 20 MG TAB PO SCH (10:14)
[2017-08-01] MEDS: CARVEDILOL 12.5 MG TAB PEG SCH ×2 (10:14→20:26)
[2017-08-01] MEDS: POTASSIUM CHLORIDE 10 MEQ CAPSULE PO SCH (10:15)
[2017-08-01] MEDS: ERYTHROMYCIN BASE 250 MG PO SCH (10:17)
[2017-08-01] MEDS: BUDESONIDE/FORMOTEROL 160/4.5 AER INH SCH ×2 (10:18→20:25)
[2017-08-01] MEDS: [UNRECOGNIZED DRUG - OTHER] PEG SCH (10:20)
[2017-08-01] MEDS: ANIDULAFUNGIN 100 MG IV SCH (11:04)
[2017-08-01] MEDS: AMLODIPINE 5 MG TAB PEG SCH (20:27)
[2017-08-02] MEDS: TEMAZEPAM 15MG 15 MG CAP PO PRN ×2 (02:14→20:16)
[2017-08-02] MEDS: SODIUM CHLORIDE 0.9% FLUSH 10 ML SOL IV SCH ×5 (02:19→20:18)
[2017-08-02] MEDS: ACLIDINIUM BROMIDE INH SCH ×2 (09:25→20:17)
[2017-08-02] MEDS: CARVEDILOL 12.5 MG TAB PEG SCH ×2 (09:26→20:14)
[2017-08-02] MEDS: ACETAMINOPHEN 500 MG 500 MG TAB PEG PRN ×2 (09:26→20:14)
[2017-08-02] MEDS: BUDESONIDE/FORMOTEROL 160/4.5 AER INH SCH ×2 (09:27→20:17)
[2017-08-02] MEDS: ERYTHROMYCIN BASE 250 MG PO SCH (09:27)
[2017-08-02] MEDS: POTASSIUM CHLORIDE 10 MEQ CAPSULE PO SCH (09:27)
[2017-08-02] MEDS: [UNRECOGNIZED DRUG - OTHER] PEG SCH (09:28)
[2017-08-02] MEDS: FUROSEMIDE 20 MG TAB PO SCH (09:28)
[2017-08-02] MEDS: LANSOPRAZOLE 3 MG/ML PEG SCH ×2 (09:29→20:13)
[2017-08-02] MEDS ORDERED: VANCOMYCIN HYDROCHLORIDE 500 MG PDS IV ONE (10:17)
[2017-08-02] MEDS ORDERED: SODIUM CHLORIDE 0.9% 250 ML 250 ML IV ONE (10:17)
[2017-08-02] MEDS ORDERED: WATER, STERILE 20 ML 40 ML ONE (10:18)
[2017-08-02 10:34] LABS: HEMATOCRIT 22 % (35-47); MEAN CORPUSCULAR HGB CONC 33.3 gm/dl (32.0-36.0); MEAN CORPUSCULAR VOLUME 89 fL (81-99)
[2017-08-02] MEDS: PDS IV SCH (10:37)
[2017-08-02] MEDS: VANCOMYCIN HCL IV SCH (10:37)
[2017-08-02] MEDS: SODIUM CHLORIDE 0.9% IV SCH (10:37)
[2017-08-02 10:44] LABS: CALCIUM 7.4 mg/dl (8.5-10.1); POTASSIUM 4.9 mMol/L (3.5-5.1)
[2017-08-02] MEDS: ANIDULAFUNGIN 100 MG IV SCH (12:13)
[2017-08-02 14:11] LABS: BASOPHILS % (MANUAL) 0 % (0-3); EOSINOPHILS % (MANUAL) 2 % (0-9); LYMPHOCYTES % (MANUAL) 24 % (10-50); PLATELET MORPHOLOGY COMMENT ADEQUATE
[2017-08-02 14:12] LABS: ANISOCYTOSIS SLIGHT AMT
[2017-08-02] MEDS: AMLODIPINE 5 MG TAB PEG SCH (20:15)
[2017-08-03] MEDS: SODIUM CHLORIDE 0.9% FLUSH 10 ML SOL IV SCH ×5 (02:03→23:12)
[2017-08-03] MEDS: ACETAMINOPHEN 500 MG 500 MG TAB PEG PRN ×2 (07:28→19:31)
[2017-08-03 07:39] LABS: HEMATOCRIT 23 % (35-47); MEAN CORPUSCULAR HGB CONC 33.3 gm/dl (32.0-36.0); MEAN CORPUSCULAR VOLUME 90 fL (81-99)
[2017-08-03 08:26] LABS: BASOPHILS % (MANUAL) 1 % (0-3); EOSINOPHILS % (MANUAL) 6 % (0-9); LYMPHOCYTES % (MANUAL) 19 % (10-50)
[2017-08-03 08:27] LABS: ANISOCYTOSIS SLIGHT AMT
[2017-08-03] MEDS ORDERED: VANCOMYCIN HYDROCHLORIDE 500 MG PDS IV ONE (08:35)
[2017-08-03] MEDS ORDERED: SODIUM CHLORIDE 0.9% 250 ML 250 ML IV ONE (08:35)
[2017-08-03] MEDS ORDERED: WATER, STERILE 20 ML 40 ML ONE (08:36)
[2017-08-03] MEDS: SODIUM CHLORIDE 0.9% IV SCH (09:06)
[2017-08-03] MEDS: VANCOMYCIN HCL IV SCH (09:06)
[2017-08-03] MEDS: PDS IV SCH (09:06)
[2017-08-03] MEDS: CARVEDILOL 12.5 MG TAB PEG SCH ×2 (10:07→20:19)
[2017-08-03] MEDS: ERYTHROMYCIN BASE 250 MG PO SCH (10:07)
[2017-08-03] MEDS: POTASSIUM CHLORIDE 10 MEQ CAPSULE PO SCH (10:07)
[2017-08-03] MEDS: BUDESONIDE/FORMOTEROL 160/4.5 AER INH SCH ×2 (10:08→20:17)
[2017-08-03] MEDS: FUROSEMIDE 20 MG TAB PO SCH (10:08)
[2017-08-03] MEDS: LANSOPRAZOLE 3 MG/ML PEG SCH ×2 (10:08→20:19)
[2017-08-03] MEDS: ACLIDINIUM BROMIDE INH SCH ×2 (10:08→20:43)
[2017-08-03] MEDS: [UNRECOGNIZED DRUG - OTHER] PEG SCH (10:12)
[2017-08-03] MEDS: ANIDULAFUNGIN 100 MG IV SCH (10:14)
[2017-08-03] MEDS ORDERED: WATER STERILE ONE (11:28)
[2017-08-03] MEDS ORDERED: FUROSEMIDE 20 MG TAB ONE (13:39)
[2017-08-03] MEDS: AMLODIPINE 5 MG TAB PEG SCH (21:56)
[2017-08-03] MEDS: TEMAZEPAM 15MG 15 MG CAP PO PRN (22:14)
[2017-08-04] MEDS: ACETAMINOPHEN 500 MG 500 MG TAB PEG PRN ×3 (05:37→19:05)
[2017-08-04 07:11] LABS: CALCIUM 7.6 mg/dl (8.5-10.1); POTASSIUM 4.9 mMol/L (3.5-5.1)
[2017-08-04 07:25] LABS: HEMATOCRIT 22 % (35-47); MEAN CORPUSCULAR HGB CONC 34.6 gm/dl (32.0-36.0); MEAN CORPUSCULAR VOLUME 88 fL (81-99)
[2017-08-04 07:57] LABS: ANISOCYTOSIS SLIGHT; BASOPHILS % (MANUAL) 2 % (0-3); EOSINOPHILS % (MANUAL) 4 % (0-9); LYMPHOCYTES % (MANUAL) 16 % (10-50)
[2017-08-04] MEDS: SODIUM CHLORIDE 0.9% FLUSH 10 ML SOL IV SCH ×3 (08:55→22:50)
[2017-08-04] MEDS: ACLIDINIUM BROMIDE INH SCH ×2 (08:55→20:08)
[2017-08-04] MEDS: BUDESONIDE/FORMOTEROL 160/4.5 AER INH SCH ×2 (08:56→20:08)
[2017-08-04] MEDS: [UNRECOGNIZED DRUG - OTHER] PEG SCH (08:57)
[2017-08-04] MEDS: LANSOPRAZOLE 3 MG/ML PEG SCH ×2 (08:57→20:17)
[2017-08-04] MEDS: ERYTHROMYCIN BASE 250 MG PO SCH (08:58)
[2017-08-04] MEDS: POTASSIUM CHLORIDE 10 MEQ CAPSULE PO SCH (08:59)
[2017-08-04] MEDS: CARVEDILOL 12.5 MG TAB PEG SCH ×2 (09:07→20:09)
[2017-08-04 09:31] LABS: APPEARANCE,URINE Clear; BILIRUBIN,URINE NEGATIVE (NEGATIVE); COLOR,URINE Yellow; GLUCOSE, URINE (UA) NEGATIVE (NEGATIVE); KETONES,URINE NEGATIVE (NEGATIVE); LEUKOCYTE ESTERASE ,URINE 1+ (NEGATIVE); NITRATE,URINE NEGATIVE (NEGATIVE); OCCULT BLOOD,URINE NEGATIVE (NEG-TRACE); PH,URINE 7.5; UROBILINOGEN,URINE 0.2 (0.2-1.0 EU)
[2017-08-04 09:43] LABS: RBC,URINE 0-2 (0-3AV/HPF)
[2017-08-04] MEDS: ANIDULAFUNGIN 100 MG IV SCH (11:02)
[2017-08-04] MEDS: FUROSEMIDE 40 MG TAB PO SCH (12:03)
[2017-08-04] MEDS: ALBUTEROL/IPRATROPIUM 1 VIAL SOL INH SCH ×3 (12:27→20:05)
[2017-08-04] MEDS ORDERED: FUROSEMIDE 40 MG TAB PO SCH (13:35)
[2017-08-04] MEDS: AMLODIPINE 5 MG TAB PEG SCH (20:10)
[2017-08-04] MEDS: TEMAZEPAM 15MG 15 MG CAP PO PRN (22:50)
[2017-08-05] MEDS: SODIUM CHLORIDE 0.9% FLUSH 10 ML SOL IV SCH ×4 (02:03→15:56)
[2017-08-05 07:12] LABS: CALCIUM 7.7 mg/dl (8.5-10.1)
[2017-08-05 07:21] LABS: HEMATOCRIT 22 % (35-47); MEAN CORPUSCULAR HGB CONC 33.9 gm/dl (32.0-36.0); MEAN CORPUSCULAR VOLUME 87 fL (81-99)
[2017-08-05 07:46] LABS: BASOPHILS % (MANUAL) 1 % (0-3); EOSINOPHILS % (MANUAL) 2 % (0-9); LYMPHOCYTES % (MANUAL) 18 % (10-50); NORMAL RBCS NORMAL RBCS
[2017-08-05] MEDS: ACETAMINOPHEN 500 MG 500 MG TAB PEG PRN (08:52)
[2017-08-05] MEDS: ALBUTEROL/IPRATROPIUM 1 VIAL SOL INH SCH ×2 (08:53→12:30)
[2017-08-05] MEDS: ACLIDINIUM BROMIDE INH SCH (09:07)
[2017-08-05] MEDS: BUDESONIDE/FORMOTEROL 160/4.5 AER INH SCH (09:32)
[2017-08-05] MEDS: ANIDULAFUNGIN 100 MG IV SCH (10:55)
[2017-08-05] MEDS: LANSOPRAZOLE 3 MG/ML PEG SCH (11:00)
[2017-08-05] MEDS: FUROSEMIDE 40 MG TAB PO SCH ×2 (11:01→13:57)
[2017-08-05] MEDS: POTASSIUM CHLORIDE 10 MEQ CAPSULE PO SCH (11:02)
[2017-08-05] MEDS: CARVEDILOL 12.5 MG TAB PEG SCH (11:02)
[2017-08-05] MEDS: ERYTHROMYCIN BASE 250 MG PO SCH (11:02)
[2017-08-05] MEDS: [UNRECOGNIZED DRUG - OTHER] PEG SCH (11:03)
[2017-08-05 15:28] VITALS: BP 127/57; PULSE 81; RESP 20; TEMP 97.7; O2SAT 96
== END 2017-08-05 16:00 | disposition short-term general hospital (02) | DRG 541 ==
LOC: ACUTE CARE 17:29
PROVIDERS: ADMIT Family Medicine; ATTEND Family Medicine
DX: M86.8X8 Other osteomyelitis, other site (principal); N18.3 Chronic kidney disease, stage 3 (moderate); J43.1 Panlobular emphysema; Z43.3 Encounter for attention to colostomy; I12.9 Hypertensive chronic kidney disease with stage 1 through stage 4 chronic kidney disease, or unspecified chronic kidney disease; N73.2 Unspecified parametritis and pelvic cellulitis
CPT/HCPCS: 36415; 36591; 71020; 71260; 74177; 80048; 81001; 85007; 85027; 87040; 94640; J3370; J7603; J7620; Q9967

== ENCOUNTER 2017-08-15 11:59 | Inpatient (IN) | payer OTHER ==
[2017-08-15] MEDS ORDERED: ALBUTEROL NEB SOL 2.5MG/3ML 1 VIAL SOL NEB PRN (17:45)
[2017-08-15] MEDS ORDERED: ANIDULAFUNGIN 100 MG IV SCH (17:45)
[2017-08-15] MEDS ORDERED: MELATONIN 3 MG TAB PO PRN (17:45)
[2017-08-15] MEDS: ALBUTEROL/IPRATROPIUM 1 VIAL SOL NEB PRN (18:53)
[2017-08-15] MEDS: ACETAMINOPHEN 500 MG 500 MG TAB PEG PRN (21:22)
[2017-08-15] MEDS: BUDESONIDE/FORMOTEROL 160/4.5 AER INH SCH (21:23)
[2017-08-15] MEDS: ACLIDINIUM BROMIDE INH SCH (21:23)
[2017-08-15] MEDS: SODIUM CHLORIDE 0.9% FLUSH 10 ML SOL IV SCH (21:24)
[2017-08-15] MEDS: CARVEDILOL 12.5 MG TAB PO SCH (21:24)
[2017-08-15] MEDS: LACTOBACILLUS ACIDOPHILUS 1 CAP CAP PO SCH (21:25)
[2017-08-16] MEDS: PANTOPRAZOLE SODIUM 40 MG ECT PO SCH ×2 (06:07→17:47)
[2017-08-16] MEDS: LACTOBACILLUS ACIDOPHILUS 1 CAP CAP PO SCH ×2 (10:51→21:26)
[2017-08-16] MEDS: ERYTHROMYCIN BASE 250 MG PO SCH (10:52)
[2017-08-16] MEDS: [UNRECOGNIZED DRUG - OTHER] PEG SCH (10:53)
[2017-08-16] MEDS: SODIUM CHLORIDE 0.9% FLUSH 10 ML SOL IV SCH ×2 (11:04→21:28)
[2017-08-16] MEDS: CARVEDILOL 12.5 MG TAB PO SCH ×2 (11:04→21:27)
[2017-08-16] MEDS: FUROSEMIDE 40 MG TAB PO SCH ×2 (11:04→12:56)
[2017-08-16] MEDS: POTASSIUM CHLORIDE 10 MEQ TER PO SCH (11:04)
[2017-08-16] MEDS: AMLODIPINE 5 MG TAB PO SCH (11:04)
[2017-08-16] MEDS: ANIDULAFUNGIN 100 MG IV SCH (11:39)
[2017-08-16] MEDS: ALBUTEROL/IPRATROPIUM 1 VIAL SOL NEB PRN (12:56)
[2017-08-16] MEDS: ACLIDINIUM BROMIDE INH SCH ×2 (16:50→21:25)
[2017-08-16] MEDS: BUDESONIDE/FORMOTEROL 160/4.5 AER INH SCH ×2 (16:50→21:26)
[2017-08-16] MEDS: ACETAMINOPHEN 500 MG 500 MG TAB PEG PRN (17:15)
[2017-08-16] MEDS: TEMAZEPAM 15MG 15 MG CAP PO PRN (21:26)
[2017-08-17] MEDS: PANTOPRAZOLE SODIUM 40 MG ECT PO SCH ×2 (06:41→17:07)
[2017-08-17] MEDS: LACTOBACILLUS ACIDOPHILUS 1 CAP CAP PO SCH ×2 (09:55→20:39)
[2017-08-17] MEDS: ACLIDINIUM BROMIDE INH SCH ×2 (09:56→20:40)
[2017-08-17] MEDS: BUDESONIDE/FORMOTEROL 160/4.5 AER INH SCH ×2 (09:57→20:41)
[2017-08-17] MEDS: ERYTHROMYCIN BASE 250 MG PO SCH (09:57)
[2017-08-17] MEDS: POTASSIUM CHLORIDE 10 MEQ TER PO SCH (09:58)
[2017-08-17] MEDS: CARVEDILOL 12.5 MG TAB PO SCH ×2 (09:58→20:40)
[2017-08-17] MEDS: FUROSEMIDE 40 MG TAB PO SCH ×2 (09:59→12:12)
[2017-08-17] MEDS: AMLODIPINE 5 MG TAB PO SCH (09:59)
[2017-08-17] MEDS: SODIUM CHLORIDE 0.9% FLUSH 10 ML SOL IV SCH ×2 (10:00→20:40)
[2017-08-17] MEDS: [UNRECOGNIZED DRUG - OTHER] PEG SCH (10:01)
[2017-08-17] MEDS: ANIDULAFUNGIN 100 MG IV SCH (10:38)
[2017-08-17] MEDS: ACETAMINOPHEN 500 MG 500 MG TAB PEG PRN (14:12)
[2017-08-17] MEDS: ALBUTEROL/IPRATROPIUM 1 VIAL SOL NEB PRN (18:34)
[2017-08-17] MEDS: TEMAZEPAM 15MG 15 MG CAP PO PRN (21:29)
[2017-08-18] MEDS: PANTOPRAZOLE SODIUM 40 MG ECT PO SCH ×2 (06:26→15:58)
[2017-08-18 07:29] LABS: BASOPHILS % (AUTO) 1 % (0-3); EOSINOPHILS % (AUTO) 3 % (0-9); HEMATOCRIT 27 % (35-47); MEAN CORPUSCULAR VOLUME 86 fL (81-99); MONOCYTES % (AUTO) 7.5 % (0-12); NEUTROPHILS % (AUTO) 53.5 % (37-80)
[2017-08-18 07:31] LABS: CALCIUM 8.5 mg/dl (8.5-10.1); POTASSIUM 3.8 mMol/L (3.5-5.1)
[2017-08-18] MEDS: LACTOBACILLUS ACIDOPHILUS 1 CAP CAP PO SCH ×2 (08:51→20:18)
[2017-08-18] MEDS: CARVEDILOL 12.5 MG TAB PO SCH ×2 (08:51→20:19)
[2017-08-18] MEDS: ERYTHROMYCIN BASE 250 MG PO SCH (08:52)
[2017-08-18] MEDS: POTASSIUM CHLORIDE 10 MEQ TER PO SCH (08:53)
[2017-08-18] MEDS: FUROSEMIDE 40 MG TAB PO SCH ×2 (08:53→12:33)
[2017-08-18] MEDS: AMLODIPINE 5 MG TAB PO SCH (08:54)
[2017-08-18] MEDS: [UNRECOGNIZED DRUG - OTHER] PEG SCH (08:59)
[2017-08-18] MEDS: BUDESONIDE/FORMOTEROL 160/4.5 AER INH SCH ×2 (09:04→20:19)
[2017-08-18] MEDS: ACLIDINIUM BROMIDE INH SCH ×2 (09:05→20:18)
[2017-08-18] MEDS: SODIUM CHLORIDE 0.9% FLUSH 10 ML SOL IV SCH ×3 (09:29→20:19)
[2017-08-18] MEDS: ANIDULAFUNGIN 100 MG IV SCH (09:31)
[2017-08-18] MEDS: ACETAMINOPHEN 500 MG 500 MG TAB PEG PRN (17:49)
[2017-08-18] MEDS: ALBUTEROL/IPRATROPIUM 1 VIAL SOL NEB PRN (18:41)
[2017-08-18] MEDS: TEMAZEPAM 15MG 15 MG CAP PO PRN (22:43)
[2017-08-19] MEDS: PANTOPRAZOLE SODIUM 40 MG ECT PO SCH ×2 (07:09→15:46)
[2017-08-19] MEDS: LACTOBACILLUS ACIDOPHILUS 1 CAP CAP PO SCH ×2 (09:09→22:02)
[2017-08-19] MEDS: ERYTHROMYCIN BASE 250 MG PO SCH (09:10)
[2017-08-19] MEDS: CARVEDILOL 12.5 MG TAB PO SCH ×2 (09:10→22:02)
[2017-08-19] MEDS: POTASSIUM CHLORIDE 10 MEQ TER PO SCH (09:11)
[2017-08-19] MEDS: FUROSEMIDE 40 MG TAB PO SCH ×2 (09:12→12:32)
[2017-08-19] MEDS: AMLODIPINE 5 MG TAB PO SCH (09:12)
[2017-08-19] MEDS: BUDESONIDE/FORMOTEROL 160/4.5 AER INH SCH ×2 (09:27→22:03)
[2017-08-19] MEDS: ACLIDINIUM BROMIDE INH SCH ×2 (09:30→22:03)
[2017-08-19] MEDS: [UNRECOGNIZED DRUG - OTHER] PEG SCH (09:33)
[2017-08-19] MEDS: ANIDULAFUNGIN 100 MG IV SCH (09:49)
[2017-08-19] MEDS: SODIUM CHLORIDE 0.9% FLUSH 10 ML SOL IV PRN ×3 (09:50→11:28)
[2017-08-19] MEDS: SODIUM CHLORIDE 0.9% FLUSH 10 ML SOL IV SCH ×2 (09:55→22:02)
[2017-08-19] MEDS: ALBUTEROL/IPRATROPIUM 1 VIAL SOL NEB PRN (19:33)
[2017-08-19] MEDS: TEMAZEPAM 15MG 15 MG CAP PO PRN (22:37)
[2017-08-20] MEDS: PANTOPRAZOLE SODIUM 40 MG ECT PO SCH ×2 (07:32→16:26)
[2017-08-20] MEDS: ACLIDINIUM BROMIDE INH SCH ×2 (08:52→20:50)
[2017-08-20] MEDS: BUDESONIDE/FORMOTEROL 160/4.5 AER INH SCH ×2 (08:53→20:50)
[2017-08-20] MEDS: LACTOBACILLUS ACIDOPHILUS 1 CAP CAP PO SCH ×2 (08:54→20:49)
[2017-08-20] MEDS: ERYTHROMYCIN BASE 250 MG PO SCH (08:54)
[2017-08-20] MEDS: CARVEDILOL 12.5 MG TAB PO SCH ×2 (08:55→20:50)
[2017-08-20] MEDS: AMLODIPINE 5 MG TAB PO SCH (08:55)
[2017-08-20] MEDS: POTASSIUM CHLORIDE 10 MEQ TER PO SCH (08:55)
[2017-08-20] MEDS: FUROSEMIDE 40 MG TAB PO SCH ×2 (08:55→11:34)
[2017-08-20] MEDS: [UNRECOGNIZED DRUG - OTHER] PEG SCH (08:56)
[2017-08-20] MEDS: SODIUM CHLORIDE 0.9% FLUSH 10 ML SOL IV SCH ×2 (08:57→20:51)
[2017-08-20] MEDS: ANIDULAFUNGIN 100 MG IV SCH (09:05)
[2017-08-20] MEDS: SODIUM CHLORIDE 0.9% FLUSH 10 ML SOL IV PRN (20:55)
[2017-08-20] MEDS: TEMAZEPAM 15MG 15 MG CAP PO PRN (22:26)
[2017-08-21] MEDS: PANTOPRAZOLE SODIUM 40 MG ECT PO SCH ×2 (06:24→16:28)
[2017-08-21] MEDS: ACLIDINIUM BROMIDE INH SCH ×2 (09:14→20:05)
[2017-08-21] MEDS: BUDESONIDE/FORMOTEROL 160/4.5 AER INH SCH ×2 (09:14→20:07)
[2017-08-21] MEDS: CARVEDILOL 12.5 MG TAB PO SCH ×2 (09:14→20:06)
[2017-08-21] MEDS: FUROSEMIDE 40 MG TAB PO SCH ×2 (09:15→12:19)
[2017-08-21] MEDS: ERYTHROMYCIN BASE 250 MG PO SCH (09:15)
[2017-08-21] MEDS: LACTOBACILLUS ACIDOPHILUS 1 CAP CAP PO SCH ×2 (09:15→20:05)
[2017-08-21] MEDS: POTASSIUM CHLORIDE 10 MEQ TER PO SCH (09:16)
[2017-08-21] MEDS: AMLODIPINE 5 MG TAB PO SCH (09:16)
[2017-08-21] MEDS: [UNRECOGNIZED DRUG - OTHER] PEG SCH (10:31)
[2017-08-21] MEDS: SODIUM CHLORIDE 0.9% FLUSH 10 ML SOL IV PRN (10:32)
[2017-08-21] MEDS: SODIUM CHLORIDE 0.9% FLUSH 10 ML SOL IV SCH ×2 (10:32→20:07)
[2017-08-21] MEDS: ANIDULAFUNGIN 100 MG IV SCH (10:33)
[2017-08-21] MEDS: TEMAZEPAM 15MG 15 MG CAP PO PRN (22:54)
[2017-08-22] MEDS: PANTOPRAZOLE SODIUM 40 MG ECT PO SCH ×2 (06:11→17:55)
[2017-08-22] MEDS: POTASSIUM CHLORIDE 10 MEQ TER PO SCH (09:54)
[2017-08-22] MEDS: ACLIDINIUM BROMIDE INH SCH ×2 (09:54→20:59)
[2017-08-22] MEDS: LACTOBACILLUS ACIDOPHILUS 1 CAP CAP PO SCH ×2 (09:54→20:56)
[2017-08-22] MEDS: ERYTHROMYCIN BASE 250 MG PO SCH (09:54)
[2017-08-22] MEDS: CARVEDILOL 12.5 MG TAB PO SCH ×2 (09:54→20:57)
[2017-08-22] MEDS: AMLODIPINE 5 MG TAB PO SCH (09:55)
[2017-08-22] MEDS: FUROSEMIDE 40 MG TAB PO SCH ×2 (09:55→12:40)
[2017-08-22] MEDS: SODIUM CHLORIDE 0.9% FLUSH 10 ML SOL IV SCH ×2 (09:55→20:57)
[2017-08-22] MEDS: BUDESONIDE/FORMOTEROL 160/4.5 AER INH SCH ×2 (09:55→20:58)
[2017-08-22] MEDS: ANIDULAFUNGIN 100 MG IV SCH (09:56)
[2017-08-22] MEDS: SODIUM CHLORIDE 0.9% FLUSH 10 ML SOL IV PRN (09:56)
[2017-08-22] MEDS: [UNRECOGNIZED DRUG - OTHER] PEG SCH (10:19)
[2017-08-22] MEDS: TEMAZEPAM 15MG 15 MG CAP PO PRN (22:28)
[2017-08-23] MEDS: PANTOPRAZOLE SODIUM 40 MG ECT PO SCH ×2 (06:48→16:08)
[2017-08-23] MEDS: SODIUM CHLORIDE 0.9% FLUSH 10 ML SOL IV SCH ×2 (09:12→20:07)
[2017-08-23] MEDS: POTASSIUM CHLORIDE 10 MEQ TER PO SCH (09:12)
[2017-08-23] MEDS: BUDESONIDE/FORMOTEROL 160/4.5 AER INH SCH ×2 (09:12→20:01)
[2017-08-23] MEDS: CARVEDILOL 12.5 MG TAB PO SCH ×2 (09:12→20:03)
[2017-08-23] MEDS: LACTOBACILLUS ACIDOPHILUS 1 CAP CAP PO SCH ×2 (09:12→20:02)
[2017-08-23] MEDS: FUROSEMIDE 40 MG TAB PO SCH ×2 (09:12→12:42)
[2017-08-23] MEDS: AMLODIPINE 5 MG TAB PO SCH (09:12)
[2017-08-23] MEDS: [UNRECOGNIZED DRUG - OTHER] PEG SCH (09:12)
[2017-08-23] MEDS: ERYTHROMYCIN BASE 250 MG PO SCH (09:12)
[2017-08-23] MEDS: ACLIDINIUM BROMIDE INH SCH ×2 (09:12→20:01)
[2017-08-23] MEDS: ANIDULAFUNGIN 100 MG IV SCH (09:13)
[2017-08-23] MEDS: SODIUM CHLORIDE 0.9% FLUSH 10 ML SOL IV PRN (09:13)
[2017-08-23] MEDS: TEMAZEPAM 15MG 15 MG CAP PO PRN (20:06)
[2017-08-24] MEDS: PANTOPRAZOLE SODIUM 40 MG ECT PO SCH ×2 (06:14→16:05)
[2017-08-24] MEDS: SODIUM CHLORIDE 0.9% FLUSH 10 ML SOL IV SCH ×2 (08:15→20:30)
[2017-08-24] MEDS: ANIDULAFUNGIN 100 MG IV SCH ×2 (08:25→09:15)
[2017-08-24] MEDS: SODIUM CHLORIDE 0.9% FLUSH 10 ML SOL IV PRN (08:25)
[2017-08-24] MEDS: CARVEDILOL 12.5 MG TAB PO SCH ×2 (09:12→20:29)
[2017-08-24] MEDS: LACTOBACILLUS ACIDOPHILUS 1 CAP CAP PO SCH ×2 (09:12→20:29)
[2017-08-24] MEDS: ERYTHROMYCIN BASE 250 MG PO SCH (09:13)
[2017-08-24] MEDS: POTASSIUM CHLORIDE 10 MEQ TER PO SCH (09:13)
[2017-08-24] MEDS: [UNRECOGNIZED DRUG - OTHER] PEG SCH (09:14)
[2017-08-24] MEDS: FUROSEMIDE 40 MG TAB PO SCH ×2 (09:14→12:16)
[2017-08-24] MEDS: AMLODIPINE 5 MG TAB PO SCH (09:15)
[2017-08-24] MEDS: BUDESONIDE/FORMOTEROL 160/4.5 AER INH SCH ×2 (09:16→20:30)
[2017-08-24] MEDS: ACLIDINIUM BROMIDE INH SCH ×2 (09:20→20:29)
[2017-08-24] MEDS: TEMAZEPAM 15MG 15 MG CAP PO PRN (21:43)
[2017-08-25] MEDS: PANTOPRAZOLE SODIUM 40 MG ECT PO SCH ×2 (06:57→17:17)
[2017-08-25 07:12] LABS: BASOPHILS % (AUTO) 1 % (0-3); EOSINOPHILS % (AUTO) 4 % (0-9); HEMATOCRIT 28 % (35-47); MEAN CORPUSCULAR HGB CONC 35.9 gm/dl (32.0-36.0); MEAN CORPUSCULAR VOLUME 84 fL (81-99); MONOCYTES % (AUTO) 10.5 % (0-12); NEUTROPHILS % (AUTO) 59.2 % (37-80)
[2017-08-25 07:20] LABS: CALCIUM 8.9 mg/dl (8.5-10.1); POTASSIUM 3.7 mMol/L (3.5-5.1)
[2017-08-25] MEDS: ANIDULAFUNGIN 100 MG IV SCH ×2 (08:25→09:14)
[2017-08-25] MEDS: SODIUM CHLORIDE 0.9% FLUSH 10 ML SOL IV PRN ×2 (08:25→20:23)
[2017-08-25] MEDS: BUDESONIDE/FORMOTEROL 160/4.5 AER INH SCH ×2 (09:11→20:24)
[2017-08-25] MEDS: [UNRECOGNIZED DRUG - OTHER] PEG SCH (09:12)
[2017-08-25] MEDS: ACLIDINIUM BROMIDE INH SCH ×2 (09:12→20:23)
[2017-08-25] MEDS: AMLODIPINE 5 MG TAB PO SCH (09:13)
[2017-08-25] MEDS: POTASSIUM CHLORIDE 10 MEQ TER PO SCH (09:13)
[2017-08-25] MEDS: SODIUM CHLORIDE 0.9% FLUSH 10 ML SOL IV SCH ×2 (09:13→20:24)
[2017-08-25] MEDS: FUROSEMIDE 40 MG TAB PO SCH ×2 (09:13→12:00)
[2017-08-25] MEDS: CARVEDILOL 12.5 MG TAB PO SCH ×2 (09:14→20:24)
[2017-08-25] MEDS: LACTOBACILLUS ACIDOPHILUS 1 CAP CAP PO SCH ×2 (09:14→20:22)
[2017-08-25] MEDS: ERYTHROMYCIN BASE 250 MG PO SCH (09:15)
[2017-08-25] MEDS: ACETAMINOPHEN 500 MG 500 MG TAB PEG PRN (15:32)
[2017-08-26] MEDS: PANTOPRAZOLE SODIUM 40 MG ECT PO SCH ×2 (06:19→17:24)
[2017-08-26] MEDS: SODIUM CHLORIDE 0.9% FLUSH 10 ML SOL IV SCH ×3 (06:27→20:00)
[2017-08-26] MEDS: ANIDULAFUNGIN 100 MG IV SCH ×2 (08:07→10:31)
[2017-08-26] MEDS: ERYTHROMYCIN BASE 250 MG PO SCH (09:44)
[2017-08-26] MEDS: LACTOBACILLUS ACIDOPHILUS 1 CAP CAP PO SCH ×2 (09:44→19:59)
[2017-08-26] MEDS: CARVEDILOL 12.5 MG TAB PO SCH ×2 (09:45→19:59)
[2017-08-26] MEDS: FUROSEMIDE 40 MG TAB PO SCH ×2 (09:45→11:52)
[2017-08-26] MEDS: POTASSIUM CHLORIDE 10 MEQ TER PO SCH (09:45)
[2017-08-26] MEDS: AMLODIPINE 5 MG TAB PO SCH (09:46)
[2017-08-26] MEDS: BUDESONIDE/FORMOTEROL 160/4.5 AER INH SCH ×2 (09:46→20:00)
[2017-08-26] MEDS: [UNRECOGNIZED DRUG - OTHER] PEG SCH (09:48)
[2017-08-26] MEDS: ACLIDINIUM BROMIDE INH SCH ×2 (09:48→20:05)
[2017-08-26] MEDS: TEMAZEPAM 15MG 15 MG CAP PO PRN (22:49)
[2017-08-27] MEDS: PANTOPRAZOLE SODIUM 40 MG ECT PO SCH ×2 (06:41→16:11)
[2017-08-27] MEDS: SODIUM CHLORIDE 0.9% FLUSH 10 ML SOL IV PRN (08:09)
[2017-08-27] MEDS: ANIDULAFUNGIN 100 MG IV SCH ×2 (08:10→13:05)
[2017-08-27] MEDS: ALBUTEROL/IPRATROPIUM 1 VIAL SOL NEB PRN ×2 (09:31→14:10)
[2017-08-27] MEDS: LACTOBACILLUS ACIDOPHILUS 1 CAP CAP PO SCH ×2 (09:40→20:32)
[2017-08-27] MEDS: CARVEDILOL 12.5 MG TAB PO SCH ×2 (09:40→20:32)
[2017-08-27] MEDS: ERYTHROMYCIN BASE 250 MG PO SCH (09:40)
[2017-08-27] MEDS: [UNRECOGNIZED DRUG - OTHER] PEG SCH (09:41)
[2017-08-27] MEDS: AMLODIPINE 5 MG TAB PO SCH (09:41)
[2017-08-27] MEDS: SODIUM CHLORIDE 0.9% FLUSH 10 ML SOL IV SCH ×2 (09:41→20:34)
[2017-08-27] MEDS: POTASSIUM CHLORIDE 10 MEQ TER PO SCH (09:41)
[2017-08-27] MEDS: FUROSEMIDE 40 MG TAB PO SCH ×2 (09:41→13:05)
[2017-08-27] MEDS: ACLIDINIUM BROMIDE INH SCH ×2 (09:42→20:32)
[2017-08-27] MEDS: BUDESONIDE/FORMOTEROL 160/4.5 AER INH SCH ×2 (09:42→20:34)
[2017-08-27] MEDS: ALBUTEROL/IPRATROPIUM 1 VIAL SOL NEB SCH ×2 (17:13→20:34)
[2017-08-28 07:16] LABS: BASOPHILS % (AUTO) 1 % (0-3); EOSINOPHILS % (AUTO) 3 % (0-9); HEMATOCRIT 28 % (35-47); MEAN CORPUSCULAR HGB CONC 35.6 gm/dl (32.0-36.0); MEAN CORPUSCULAR VOLUME 82 fL (81-99); MONOCYTES % (AUTO) 7.8 % (0-12)
[2017-08-28 07:18] LABS: ALBUMIN 2.6 gm/dl (3.4-5.0); CALCIUM 9.3 mg/dl (8.5-10.1); POTASSIUM 3.7 mMol/L (3.5-5.1)
[2017-08-28] MEDS: ANIDULAFUNGIN 100 MG IV SCH ×2 (07:42→11:48)
[2017-08-28] MEDS: SODIUM CHLORIDE 0.9% FLUSH 10 ML SOL IV PRN (08:49)
[2017-08-28] MEDS: SODIUM CHLORIDE 0.9% FLUSH 10 ML SOL IV SCH ×2 (08:49→20:33)
[2017-08-28] MEDS: AMLODIPINE 5 MG TAB PO SCH (08:50)
[2017-08-28] MEDS: LACTOBACILLUS ACIDOPHILUS 1 CAP CAP PO SCH ×2 (08:50→20:32)
[2017-08-28] MEDS: PANTOPRAZOLE SODIUM 40 MG ECT PO SCH ×2 (08:50→17:04)
[2017-08-28] MEDS: CARVEDILOL 12.5 MG TAB PO SCH ×2 (08:51→20:32)
[2017-08-28] MEDS: POTASSIUM CHLORIDE 10 MEQ TER PO SCH (08:51)
[2017-08-28] MEDS: FUROSEMIDE 40 MG TAB PO SCH ×2 (08:51→12:42)
[2017-08-28] MEDS: ACLIDINIUM BROMIDE INH SCH ×2 (08:52→20:34)
[2017-08-28] MEDS: BUDESONIDE/FORMOTEROL 160/4.5 AER INH SCH ×2 (08:52→20:34)
[2017-08-28] MEDS: [UNRECOGNIZED DRUG - OTHER] PEG SCH (08:52)
[2017-08-28] MEDS: ALBUTEROL/IPRATROPIUM 1 VIAL SOL NEB SCH ×4 (09:27→20:34)
[2017-08-28] MEDS: ERYTHROMYCIN BASE 250 MG PO SCH (12:41)
[2017-08-28] MEDS: TEMAZEPAM 15MG 15 MG CAP PO PRN (20:33)
[2017-08-29] MEDS: ANIDULAFUNGIN 100 MG IV SCH ×2 (06:07→10:07)
[2017-08-29] MEDS: CARVEDILOL 12.5 MG TAB PO SCH ×3 (06:23→20:40)
[2017-08-29] MEDS: PANTOPRAZOLE SODIUM 40 MG ECT PO SCH ×2 (06:23→17:08)
[2017-08-29] MEDS: ACLIDINIUM BROMIDE INH SCH ×3 (06:24→20:37)
[2017-08-29] MEDS: LACTOBACILLUS ACIDOPHILUS 1 CAP CAP PO SCH ×3 (06:24→20:39)
[2017-08-29] MEDS: ERYTHROMYCIN BASE 250 MG PO SCH ×2 (06:25→10:05)
[2017-08-29] MEDS: FUROSEMIDE 40 MG TAB PO SCH ×3 (06:26→13:14)
[2017-08-29] MEDS: [UNRECOGNIZED DRUG - OTHER] PEG SCH ×2 (06:26→10:06)
[2017-08-29] MEDS: POTASSIUM CHLORIDE 10 MEQ TER PO SCH ×2 (06:26→10:06)
[2017-08-29] MEDS: AMLODIPINE 5 MG TAB PO SCH ×2 (06:27→10:06)
[2017-08-29] MEDS: SODIUM CHLORIDE 0.9% FLUSH 10 ML SOL IV SCH ×3 (06:28→20:39)
[2017-08-29] MEDS: BUDESONIDE/FORMOTEROL 160/4.5 AER INH SCH ×3 (06:28→20:36)
[2017-08-29] MEDS: ALBUTEROL/IPRATROPIUM 1 VIAL SOL NEB SCH ×5 (06:29→20:41)
[2017-08-29] MEDS: SODIUM CHLORIDE 0.9% FLUSH 10 ML SOL IV PRN (20:54)
[2017-08-30] MEDS: PANTOPRAZOLE SODIUM 40 MG ECT PO SCH ×2 (06:28→16:47)
[2017-08-30] MEDS: ALBUTEROL/IPRATROPIUM 1 VIAL SOL NEB SCH ×4 (08:57→20:22)
[2017-08-30] MEDS: FUROSEMIDE 40 MG TAB PO SCH ×2 (09:00→12:13)
[2017-08-30] MEDS: CARVEDILOL 12.5 MG TAB PO SCH ×2 (09:00→20:21)
[2017-08-30] MEDS: POTASSIUM CHLORIDE 10 MEQ TER PO SCH (09:00)
[2017-08-30] MEDS: AMLODIPINE 5 MG TAB PO SCH (09:01)
[2017-08-30] MEDS: SODIUM CHLORIDE 0.9% FLUSH 10 ML SOL IV SCH ×2 (09:01→20:25)
[2017-08-30] MEDS: ERYTHROMYCIN BASE 250 MG PO SCH (09:02)
[2017-08-30] MEDS: LACTOBACILLUS ACIDOPHILUS 1 CAP CAP PO SCH ×2 (09:02→20:24)
[2017-08-30] MEDS: [UNRECOGNIZED DRUG - OTHER] PEG SCH (09:03)
[2017-08-30] MEDS: ACLIDINIUM BROMIDE INH SCH ×2 (09:14→20:25)
[2017-08-30] MEDS: BUDESONIDE/FORMOTEROL 160/4.5 AER INH SCH ×2 (09:14→20:26)
[2017-08-30] MEDS: SODIUM CHLORIDE 0.9% FLUSH 10 ML SOL IV PRN ×2 (09:53→20:37)
[2017-08-30] MEDS: TEMAZEPAM 15MG 15 MG CAP PO PRN (22:15)
[2017-08-31] MEDS: PANTOPRAZOLE SODIUM 40 MG ECT PO SCH ×2 (06:41→16:43)
[2017-08-31] MEDS: BUDESONIDE/FORMOTEROL 160/4.5 AER INH SCH ×2 (09:38→20:10)
[2017-08-31] MEDS: CARVEDILOL 12.5 MG TAB PO SCH ×2 (09:39→20:10)
[2017-08-31] MEDS: FUROSEMIDE 40 MG TAB PO SCH ×2 (09:39→13:38)
[2017-08-31] MEDS: POTASSIUM CHLORIDE 10 MEQ TER PO SCH (09:39)
[2017-08-31] MEDS: ERYTHROMYCIN BASE 250 MG PO SCH (09:39)
[2017-08-31] MEDS: LACTOBACILLUS ACIDOPHILUS 1 CAP CAP PO SCH ×2 (09:40→20:10)
[2017-08-31] MEDS: ALBUTEROL/IPRATROPIUM 1 VIAL SOL NEB SCH ×4 (09:41→20:07)
[2017-08-31] MEDS: AMLODIPINE 5 MG TAB PO SCH (09:41)
[2017-08-31] MEDS: SODIUM CHLORIDE 0.9% FLUSH 10 ML SOL IV SCH ×2 (09:47→20:11)
[2017-08-31] MEDS: [UNRECOGNIZED DRUG - OTHER] PEG SCH (09:47)
[2017-08-31] MEDS: ACLIDINIUM BROMIDE INH SCH ×2 (09:50→20:10)
[2017-08-31] MEDS: SODIUM CHLORIDE 0.9% FLUSH 10 ML SOL IV PRN (20:12)
[2017-09-01] MEDS: PANTOPRAZOLE SODIUM 40 MG ECT PO SCH ×2 (06:35→16:51)
[2017-09-01 07:22] LABS: BASOPHILS % (AUTO) 1 % (0-3); EOSINOPHILS % (AUTO) 3 % (0-9); HEMATOCRIT 27 % (35-47); MEAN CORPUSCULAR HGB CONC 34.5 gm/dl (32.0-36.0); MEAN CORPUSCULAR VOLUME 84 fL (81-99); MONOCYTES % (AUTO) 9.9 % (0-12); NEUTROPHILS % (AUTO) 59.1 % (37-80)
[2017-09-01] MEDS: ALBUTEROL/IPRATROPIUM 1 VIAL SOL NEB SCH ×2 (08:59→18:27)
[2017-09-01] MEDS: LACTOBACILLUS ACIDOPHILUS 1 CAP CAP PO SCH ×2 (08:59→20:40)
[2017-09-01] MEDS: FUROSEMIDE 40 MG TAB PO SCH ×2 (09:00→12:15)
[2017-09-01] MEDS: ACLIDINIUM BROMIDE INH SCH ×2 (09:00→20:45)
[2017-09-01] MEDS: CARVEDILOL 12.5 MG TAB PO SCH ×2 (09:00→20:39)
[2017-09-01] MEDS: AMLODIPINE 5 MG TAB PO SCH (09:01)
[2017-09-01] MEDS: ERYTHROMYCIN BASE 250 MG PO SCH (09:01)
[2017-09-01] MEDS: POTASSIUM CHLORIDE 10 MEQ TER PO SCH (09:01)
[2017-09-01] MEDS: SODIUM CHLORIDE 0.9% FLUSH 10 ML SOL IV SCH ×2 (09:02→21:00)
[2017-09-01] MEDS: BUDESONIDE/FORMOTEROL 160/4.5 AER INH SCH ×2 (09:02→20:44)
[2017-09-01] MEDS: [UNRECOGNIZED DRUG - OTHER] PEG SCH (09:03)
[2017-09-01] MEDS: ACETAMINOPHEN 500 MG 500 MG TAB PEG PRN (20:38)
[2017-09-02] MEDS: PANTOPRAZOLE SODIUM 40 MG ECT PO SCH ×2 (06:00→17:26)
[2017-09-02] MEDS: BUDESONIDE/FORMOTEROL 160/4.5 AER INH SCH ×2 (09:54→20:27)
[2017-09-02] MEDS: [UNRECOGNIZED DRUG - OTHER] PEG SCH (09:54)
[2017-09-02] MEDS: ACLIDINIUM BROMIDE INH SCH ×2 (09:54→20:27)
[2017-09-02] MEDS: SODIUM CHLORIDE 0.9% FLUSH 10 ML SOL IV SCH ×2 (09:55→20:30)
[2017-09-02] MEDS: LACTOBACILLUS ACIDOPHILUS 1 CAP CAP PO SCH ×2 (09:56→20:25)
[2017-09-02] MEDS: FUROSEMIDE 40 MG TAB PO SCH ×2 (09:56→11:56)
[2017-09-02] MEDS: CARVEDILOL 12.5 MG TAB PO SCH ×2 (09:56→20:25)
[2017-09-02] MEDS: AMLODIPINE 5 MG TAB PO SCH (09:57)
[2017-09-02] MEDS: POTASSIUM CHLORIDE 10 MEQ TER PO SCH (09:57)
[2017-09-02] MEDS: ALBUTEROL/IPRATROPIUM 1 VIAL SOL NEB SCH ×2 (09:57→18:50)
[2017-09-02] MEDS: ERYTHROMYCIN BASE 250 MG PO SCH (09:58)
[2017-09-02] MEDS ORDERED: FUROSEMIDE 40 MG SOL ONE (12:01)
[2017-09-03] MEDS: PANTOPRAZOLE SODIUM 40 MG ECT PO SCH ×2 (06:20→16:36)
[2017-09-03] MEDS: [UNRECOGNIZED DRUG - OTHER] PEG SCH (09:10)
[2017-09-03] MEDS: ACLIDINIUM BROMIDE INH SCH ×2 (09:11→20:14)
[2017-09-03] MEDS: LACTOBACILLUS ACIDOPHILUS 1 CAP CAP PO SCH ×2 (09:11→20:08)
[2017-09-03] MEDS: BUDESONIDE/FORMOTEROL 160/4.5 AER INH SCH ×2 (09:11→20:12)
[2017-09-03] MEDS: POTASSIUM CHLORIDE 10 MEQ TER PO SCH (09:12)
[2017-09-03] MEDS: FUROSEMIDE 40 MG TAB PO SCH ×2 (09:12→12:56)
[2017-09-03] MEDS: ERYTHROMYCIN BASE 250 MG PO SCH (09:12)
[2017-09-03] MEDS: CARVEDILOL 12.5 MG TAB PO SCH ×2 (09:12→20:09)
[2017-09-03] MEDS: AMLODIPINE 5 MG TAB PO SCH (09:13)
[2017-09-03] MEDS: SODIUM CHLORIDE 0.9% FLUSH 10 ML SOL IV SCH ×2 (09:14→20:10)
[2017-09-03] MEDS: ALBUTEROL/IPRATROPIUM 1 VIAL SOL NEB SCH ×2 (09:14→18:18)
[2017-09-03] MEDS: ACETAMINOPHEN 500 MG 500 MG TAB PEG PRN (19:28)
[2017-09-04] MEDS: PANTOPRAZOLE SODIUM 40 MG ECT PO SCH ×2 (07:15→15:45)
[2017-09-04] MEDS: BUDESONIDE/FORMOTEROL 160/4.5 AER INH SCH ×2 (09:03→20:58)
[2017-09-04] MEDS: ACLIDINIUM BROMIDE INH SCH ×2 (09:03→20:59)
[2017-09-04] MEDS: LACTOBACILLUS ACIDOPHILUS 1 CAP CAP PO SCH ×2 (09:04→20:59)
[2017-09-04] MEDS: AMLODIPINE 5 MG TAB PO SCH (09:05)
[2017-09-04] MEDS: POTASSIUM CHLORIDE 10 MEQ TER PO SCH (09:05)
[2017-09-04] MEDS: FUROSEMIDE 40 MG TAB PO SCH ×2 (09:05→12:04)
[2017-09-04] MEDS: CARVEDILOL 12.5 MG TAB PO SCH ×2 (09:05→20:59)
[2017-09-04] MEDS: ERYTHROMYCIN BASE 250 MG PO SCH (09:05)
[2017-09-04] MEDS: [UNRECOGNIZED DRUG - OTHER] PEG SCH (09:07)
[2017-09-04] MEDS: ALBUTEROL/IPRATROPIUM 1 VIAL SOL NEB SCH ×2 (09:10→18:12)
[2017-09-04] MEDS: SODIUM CHLORIDE 0.9% FLUSH 10 ML SOL IV SCH ×2 (09:13→20:15)
[2017-09-05] MEDS: PANTOPRAZOLE SODIUM 40 MG ECT PO SCH (06:52)
[2017-09-05] MEDS: ACLIDINIUM BROMIDE INH SCH (08:46)
[2017-09-05] MEDS: LACTOBACILLUS ACIDOPHILUS 1 CAP CAP PO SCH (08:46)
[2017-09-05] MEDS: SODIUM CHLORIDE 0.9% FLUSH 10 ML SOL IV SCH (08:47)
[2017-09-05] MEDS: CARVEDILOL 12.5 MG TAB PO SCH (08:47)
[2017-09-05] MEDS: BUDESONIDE/FORMOTEROL 160/4.5 AER INH SCH (08:47)
[2017-09-05] MEDS: POTASSIUM CHLORIDE 10 MEQ TER PO SCH (08:48)
[2017-09-05] MEDS: ERYTHROMYCIN BASE 250 MG PO SCH (08:48)
[2017-09-05] MEDS: AMLODIPINE 5 MG TAB PO SCH (08:49)
[2017-09-05] MEDS: FUROSEMIDE 40 MG TAB PO SCH ×2 (08:49→11:45)
[2017-09-05] MEDS: [UNRECOGNIZED DRUG - OTHER] PEG SCH (08:49)
[2017-09-05] MEDS: ALBUTEROL/IPRATROPIUM 1 VIAL SOL NEB SCH (08:50)
[2017-09-05] MEDS ORDERED: INFLUENZA HIGH DOSE VACCINE 0.5 ML SUS IM ONE (09:03)
[2017-09-05 10:46] VITALS: BP 92/53; PULSE 75; RESP 20; TEMP 97.5; O2SAT 96
== END 2017-09-05 12:10 | disposition home health service (06) | DRG 758 ==
LOC: ACUTE CARE 15:06
PROVIDERS: ADMIT Family Medicine; ATTEND Family Medicine
PROC: F01ZDZZ Gait and/or Balance Assessment (ICD-10-PCS; principal; 2017-08-15)
PROC: F01ZBZZ Bed Mobility Assessment (ICD-10-PCS; 2017-08-15)
PROC: F01ZCZZ Transfer Assessment (ICD-10-PCS; 2017-08-15)
PROC: F02Z1ZZ Dressing Assessment (ICD-10-PCS; 2017-08-15)
PROC: F02Z0ZZ Bathing/Showering Assessment (ICD-10-PCS; 2017-08-15)
PROC: F02Z3ZZ Grooming/Personal Hygiene Assessment (ICD-10-PCS; 2017-08-15)
DX: N73.9 Female pelvic inflammatory disease, unspecified (principal); M86.9 Osteomyelitis, unspecified; D64.9 Anemia, unspecified; J43.1 Panlobular emphysema; Z99.81 Dependence on supplemental oxygen; N18.3 Chronic kidney disease, stage 3 (moderate); I12.9 Hypertensive chronic kidney disease with stage 1 through stage 4 chronic kidney disease, or unspecified chronic kidney disease; R53.1 Weakness; Z93.3 Colostomy status; Z93.2 Ileostomy status
CPT/HCPCS: 36415; 36591; 74177; 80048; 80053; 85025; 90662; 94640; 99211; 99231; J1940; J7620; Q9967; A6232; A6402; G0008

== ENCOUNTER 2017-09-06 03:07 | Inpatient (IN) | payer OTHER ==
[2017-09-06] MEDS ORDERED: KETOROLAC TROMETHAMINE 30 MG/ML SOL IV ONE (03:18)
[2017-09-06] MEDS ORDERED: KETOROLAC TROMETHAMINE 30 MG/ML SOL ONE (03:19)
[2017-09-06] MEDS: SODIUM CHLORIDE 0.9% FLUSH 10 ML SOL IV PRN ×3 (03:22→20:36)
[2017-09-06] MEDS ORDERED: HYDROMORPHONE HCL 2 MG/ML SOL IV ONE (04:55)
[2017-09-06] MEDS ORDERED: HYDROMORPHONE HCL 2 MG/ML SOL ONE (04:56)
[2017-09-06] MEDS ORDERED: ONDANSETRON HCL 4 MG/2 ML SOL IV ONE (05:00)
[2017-09-06] MEDS ORDERED: ONDANSETRON HCL 4 MG/2 ML SOL ONE (05:01)
[2017-09-06] MEDS ORDERED: FENTANYL 25 MCG PATCH TDM TD ONE (05:13)
[2017-09-06] MEDS ORDERED: FENTANYL 25 MCG PATCH TDM TD SCH (05:15)
[2017-09-06] MEDS ORDERED: ALBUTEROL/IPRATROPIUM 1 VIAL SOL NEB PRN (13:06)
[2017-09-06] MEDS ORDERED: MELATONIN 3 MG TAB PO PRN (13:06)
[2017-09-06] MEDS: MULTIVITAMIN2 1 EA TAB PO SCH (15:11)
[2017-09-06] MEDS: POTASSIUM CHLORIDE 10 MEQ TER PO SCH (15:12)
[2017-09-06] MEDS: Non-Formulary Medication MISC (Budesonide/Formoterol 160/4.5 1 PUFF) INH SCH (15:12)
[2017-09-06] MEDS: FUROSEMIDE 40 MG TAB PO SCH (15:12)
[2017-09-06] MEDS: AMLODIPINE 5 MG TAB PO SCH (15:12)
[2017-09-06] MEDS: ACLIDINIUM BROMIDE INH SCH ×2 (15:13→20:35)
[2017-09-06] MEDS: ACETAMINOPHEN 500 MG 500 MG TAB PO PRN ×2 (15:25→21:26)
[2017-09-06] MEDS: LACTOBACILLUS ACIDOPHILUS PO SCH ×2 (15:26→20:35)
[2017-09-06] MEDS: PANTOPRAZOLE SODIUM 40 MG ECT PO SCH (15:30)
[2017-09-06] MEDS: CARVEDILOL 12.5 MG TAB PO SCH (20:36)
[2017-09-07] MEDS: Non-Formulary Medication MISC (Budesonide/Formoterol 160/4.5 1 PUFF) INH SCH ×3 (00:20→20:08)
[2017-09-07] MEDS: ACETAMINOPHEN 500 MG 500 MG TAB PO PRN ×3 (03:00→15:46)
[2017-09-07] MEDS: PANTOPRAZOLE SODIUM 40 MG ECT PO SCH ×2 (06:02→16:43)
[2017-09-07] MEDS ORDERED: ERYTHROMYCIN BASE 250 MG PO SCH (09:00)
[2017-09-07] MEDS: SODIUM CHLORIDE 0.9% FLUSH 10 ML SOL IV PRN ×4 (09:36→20:11)
[2017-09-07] MEDS: LACTOBACILLUS ACIDOPHILUS PO SCH ×2 (09:37→20:09)
[2017-09-07] MEDS: POTASSIUM CHLORIDE 10 MEQ TER PO SCH (09:38)
[2017-09-07] MEDS: MULTIVITAMIN2 1 EA TAB PO SCH (09:38)
[2017-09-07] MEDS: FUROSEMIDE 40 MG TAB PO SCH ×3 (09:38→15:46)
[2017-09-07] MEDS: CARVEDILOL 12.5 MG TAB PO SCH ×2 (09:38→20:09)
[2017-09-07] MEDS: AMLODIPINE 5 MG TAB PO SCH (09:38)
[2017-09-07] MEDS: ACLIDINIUM BROMIDE INH SCH ×2 (09:39→20:11)
[2017-09-07] MEDS ORDERED: HYDROMORPHONE HCL 2 MG/ML SOL IV ONE (11:15)
[2017-09-07] MEDS ORDERED: ONDANSETRON HCL 4 MG/2 ML SOL IV PRN (13:35)
[2017-09-07] MEDS ORDERED: ONDANSETRON 4 MG ODT BU PRN (14:07)
[2017-09-07 20:08] VITALS: PULSE 68; RESP 18
[2017-09-07] MEDS: OXYCODONE HYDROCHLORIDE 5 MG TAB PO PRN (20:10)
[2017-09-07] MEDS: SODIUM CHLORIDE 0.9% FLUSH 10 ML SOL IV SCH (22:12)
[2017-09-08] MEDS: ACETAMINOPHEN 500 MG 500 MG TAB PO PRN (01:57)
[2017-09-08] MEDS: OXYCODONE HYDROCHLORIDE 5 MG TAB PO PRN ×3 (03:43→13:30)
[2017-09-08] MEDS: SODIUM CHLORIDE 0.9% FLUSH 10 ML SOL IV SCH ×2 (06:15→14:04)
[2017-09-08] MEDS: PANTOPRAZOLE SODIUM 40 MG ECT PO SCH (06:15)
[2017-09-08] MEDS: LACTOBACILLUS ACIDOPHILUS PO SCH (09:34)
[2017-09-08] MEDS: ACLIDINIUM BROMIDE INH SCH (09:34)
[2017-09-08] MEDS: AMLODIPINE 5 MG TAB PO SCH (09:42)
[2017-09-08] MEDS: FUROSEMIDE 40 MG TAB PO SCH ×2 (09:42→12:13)
[2017-09-08] MEDS: POTASSIUM CHLORIDE 10 MEQ TER PO SCH (09:42)
[2017-09-08] MEDS: MULTIVITAMIN2 1 EA TAB PO SCH (09:42)
[2017-09-08] MEDS: CARVEDILOL 12.5 MG TAB PO SCH (09:42)
[2017-09-08] MEDS: Non-Formulary Medication MISC (Budesonide/Formoterol 160/4.5 1 PUFF) INH SCH (09:44)
[2017-09-08] MEDS ORDERED: BUDESONIDE/FORMOTEROL 160/4.5 AER INH SCH (09:45)
[2017-09-08 10:16] VITALS: BP 137/65; TEMP 97.3; O2SAT 92
== END 2017-09-08 14:45 | DRG 605 ==
LOC: ED 03:07 → ACUTE CARE 13:00
PROVIDERS: ADMIT Family Medicine; ATTEND Family Medicine
DX: S70.01XA Contusion of right hip, initial encounter (principal); I48.2 Chronic atrial fibrillation; N18.3 Chronic kidney disease, stage 3 (moderate); M54.5 Low back pain; W19.XXXA Unspecified fall, initial encounter; R11.2 Nausea with vomiting, unspecified; J43.1 Panlobular emphysema
CPT/HCPCS: 72120; 73501; 94640; 96374; 96375; 99221; 99231; 99285; J1170; J1885; J2405; J7620; A4450

== ENCOUNTER 2017-10-01 10:56 | Emergency (ER) | payer OTHER ==
[2017-10-01 15:01] VITALS: BP 126/59; PULSE 71; RESP 20; TEMP 97.9; O2SAT 100
== END 2017-10-01 12:50 | DRG 395 ==
LOC: ED 10:56
DX: K94.23 Gastrostomy malfunction (principal)
CPT/HCPCS: 99282

== ENCOUNTER 2017-11-03 19:12 | Emergency (ER) | payer OTHER ==
[2017-11-03 20:14] LABS: BASOPHILS % (AUTO) 1 % (0-3); EOSINOPHILS % (AUTO) 2 % (0-9); HEMATOCRIT 30 % (35-47); MEAN CORPUSCULAR HGB CONC 32.5 gm/dl (32.0-36.0); MEAN CORPUSCULAR VOLUME 86 fL (81-99); MONOCYTES % (AUTO) 7.4 % (0-12)
[2017-11-03 20:20] LABS: ALBUMIN 2.7 gm/dl (3.4-5.0)
[2017-11-03 20:27] VITALS: TEMP 99.5
[2017-11-03 21:21] VITALS: RESP 16
[2017-11-03 22:48] VITALS: BP 119/63; PULSE 77; O2SAT 98
== END 2017-11-03 22:58 | DRG 394 ==
LOC: ED 19:12
DX: K94.29 Other complications of gastrostomy (principal); K31.6 Fistula of stomach and duodenum
CPT/HCPCS: 36415; 74177; 80053; 85025; 99284; Q9967

== ENCOUNTER 2017-11-18 16:56 | Inpatient (IN) | payer OTHER ==
[2017-11-18] MEDS ORDERED: ALBUTEROL/IPRATROPIUM 1 VIAL SOL ONE ×3 (16:59→20:21)
[2017-11-18] MEDS ORDERED: SOLUMEDROL 125 MG/2 ML 125 MG/2 ML PDS ONE (17:04)
[2017-11-18] MEDS ORDERED: SOLUMEDROL 125 MG/2 ML 125 MG/2 ML PDS IV ONE ×2 (17:04→17:05)
[2017-11-18] MEDS ORDERED: ALBUTEROL/IPRATROPIUM 1 VIAL SOL INH ONE ×3 (17:04→18:20)
[2017-11-18] MEDS ORDERED: SODIUM CHLORIDE 0.9% 1000ML 1,000 ML IV SCH (17:15)
[2017-11-18 17:42] LABS: HEMATOCRIT 32 % (35-47); MEAN CORPUSCULAR HGB CONC 31.6 gm/dl (32.0-36.0); MEAN CORPUSCULAR VOLUME 86 fL (81-99)
[2017-11-18 17:57] LABS: ALBUMIN 3.3 gm/dl (3.4-5.0); CALCIUM 9.1 mg/dl (8.5-10.1); POTASSIUM 4.1 mMol/L (3.5-5.1)
[2017-11-18] MEDS ORDERED: PIPERACILLIN/TAZOBACT 3.375 GM 2.25 GM in SODIUM CHLORIDE 0.9% 100 ML 100 ML IV ONE (18:07)
[2017-11-18] MEDS ORDERED: PDS IV ONE (18:10)
[2017-11-18] MEDS ORDERED: VANCOMYCIN HCL IV ONE (18:10)
[2017-11-18] MEDS ORDERED: SODIUM CHLORIDE 0.9% IV ONE (18:10)
[2017-11-18 18:11] LABS: ABG PH 7.09 (7.35-7.45)
[2017-11-18 19:00] LABS: BASOPHILS % (MANUAL) 0 % (0-3); EOSINOPHILS % (MANUAL) 0 % (0-9); LYMPHOCYTES % (MANUAL) 7 % (10-50)
[2017-11-18 19:01] LABS: NORMAL RBCS NORMAL RBCS
[2017-11-18] MEDS ORDERED: PIPERACILLIN/TAZOBACT 3.375 GM PDS IV ONE (19:06)
[2017-11-18 19:43] LABS: ABG PH 7.13 (7.35-7.45)
[2017-11-18] MEDS ORDERED: VANCOMYCIN HYDROCHLORIDE 500 MG PDS IV ONE (19:49)
[2017-11-18] MEDS ORDERED: ALBUTEROL NEB SOL 2.5MG/3ML 1 VIAL SOL NEB PRN (21:15)
[2017-11-18] MEDS ORDERED: SOLUMEDROL 125 MG/2 ML 125 MG/2 ML PDS IV SCH (21:30)
[2017-11-18] MEDS ORDERED: PIPERACILLIN/TAZOBACT 3.375 GM 2.25 GM in SODIUM CHLORIDE 0.9% 100 ML 100 ML IV SCH (21:30)
[2017-11-18] MEDS ORDERED: ROCURONIUM BROMIDE 10 MG/ML SOL IV ONE ×2 (22:30→22:31)
[2017-11-18] MEDS ORDERED: ETOMIDATE 2 MG/ML SOL IV ONE ×2 (22:30→22:31)
[2017-11-18] MEDS ORDERED: MIDAZOLAM 2 MG/2 ML SOL ONE (23:09)
[2017-11-18] MEDS ORDERED: MIDAZOLAM 2 MG/2 ML SOL IV ONE (23:09)
[2017-11-19] MEDS ORDERED: ALBUTEROL/IPRATROPIUM 1 VIAL SOL INH SCH
[2017-11-19 01:04] VITALS: RESP 24; TEMP 98.7
[2017-11-19 02:01] VITALS: O2SAT 100
[2017-11-19 02:05] VITALS: BP 135/64; PULSE 73
[2017-11-19] MEDS ORDERED: NOVOLOG FLEXPEN SC SCH (07:00)
[2017-11-19] MEDS ORDERED: ENOXAPARIN 30 MG SOL SC SCH (09:00)
== END 2017-11-18 23:40 | disposition short-term general hospital (02) | DRG 189 ==
LOC: ED 16:56 → UNDOADMIN 20:37 → ACUTE CARE 20:37
PROVIDERS: ADMIT Family Medicine; ATTEND Family Medicine
DX: J96.20 Acute and chronic respiratory failure, unspecified whether with hypoxia or hypercapnia (principal); A41.9 Sepsis, unspecified organism; J44.1 Chronic obstructive pulmonary disease with (acute) exacerbation
CPT/HCPCS: 31500; 36415; 36600; 71045; 71250; 74176; 80053; 82803; 85007; 85027; 87040; 87804; 96365; 96366; 96374; 99291; 99292; J2250; J2543; J2930; J3370; J7603; J7620; J1650